=== PATIENT | male | born 1955 | race Hispanic/Latino ===

== ENCOUNTER 2017-09-24 09:10 | Inpatient (IN) | payer MEDICARE, OTHER ==
[~2017-09-24] VITALS: Ht 180.3 cm; Wt 114.8 kg
[2017-09-24] MEDS ORDERED: METFORMIN HCL850 MG PO (09:41)
[2017-09-24] MEDS ORDERED: PIOGLITAZONE HC45 MG PO (09:41)
[2017-09-24] MEDS ORDERED: LOSARTAN POTAS100 MG PO (09:41)
[2017-09-24] MEDS ORDERED: PRISTIQ ER50 MG PO ×2 (09:41→14:41)
[2017-09-24] MEDS ORDERED: JANUVIA100 MG PO (09:41)
[2017-09-24] MEDS ORDERED: ASPIRIN EC81 MG PO (09:41)
[2017-09-24] MEDS ORDERED: GABAPENTIN300 MG PO (09:41)
[2017-09-24] MEDS ORDERED: HYDROCHLOROTH12.5 MG PO (09:41)
--- NOTE | 2017-09-24 09:54 | Diagnostic Imaging Report ---
PROCEDURE: X-RAY CHEST, TWO VIEWS COMPARISON: None. INDICATIONS: SHORTNESS OF BREATH, BILATERAL LEG PAIN/BURNING FINDINGS: Lung volumes are low with vascular crowding in the bases and perihilar regions. No focal consolidation, pleural effusion, or pneumothorax. Cardiomediastinal contour and pulmonary vasculature are within normal limits when accounting for degree of inspiratory effort. Ventriculoperitoneal shunt catheter partially visualized. No acute osseous abnormality. CONCLUSION: Low lung volumes without acute cardiopulmonary abnormality. Dictated by: Flynn Alvarado M.D. on 09/24/2017 at 9:54 Electronically approved by: Flynn Alvarado M.D. on 09/24/2017 at 9:54
[2017-09-24 10:12] LABS: BASOPHILS # (AUTO) 0.1 (0.0-0.1); BASOPHILS % 0.9 % (0.0-1.0); EOSINOPHILS # (AUTO) 0.1 (0.0-0.4); EOSINOPHILS % 1.5 % (0.0-6.0); HEMATOCRIT 44.1 % (38.2-49.6); LYMPHOCYTES # (AUTO) 1.2 (1.0-3.2); LYMPHOCYTES % 22.4 % (18.0-39.1); MEAN CORPUSCULAR HEMOGLOBIN 30.5 pg (28-32); MEAN CORPUSCULAR VOLUME 89.6 fL (81-99); MONOCYTES # (AUTO) 0.3 (0.2-0.8); MONOCYTES % 5.9 % (4.4-11.3); NEUTROPHILS # (AUTO) 3.7 (2.1-6.9); NEUTROPHILS % 68.7 % (38.7-80.0); PLATELET COUNT 206 x10e3/uL (140-360); RED BLOOD COUNT 4.92 x10e6/uL (4.3-5.7); RED CELL DISTRIBUTION WIDTH 14.7 % (11.7-14.4)
[2017-09-24 10:33] LABS: ALANINE AMINOTRANSFERASE 24 IU/L (0-55); ALBUMIN 3.8 g/dL (3.5-5.0); ALKALINE PHOSPHATASE 82 IU/L (40-150); ANION GAP 14.8 mmol/L (8-16); BLOOD UREA NITROGEN 27 mg/dL (7-26); BUN/CREATININE RATIO 26 (6-25); CALCIUM 9.7 mg/dL (8.4-10.2); CARBON DIOXIDE 25 mmol/L (22-29); CHLORIDE 102 mmol/L (98-107); CREATININE, SERUM 1.05 mg/dL (0.72-1.25); EST GLOMERULAR FILTRATION RATE > 60 ML/MIN (60-); GLUCOSE 165 mg/dL (74-118); MAGNESIUM 1.3 MG/DL (1.3-2.1); PHOSPHORUS 2.8 MG/DL (2.3-4.7); POTASSIUM 3.8 mmol/L (3.5-5.1); SODIUM 138 mmol/L (136-145)
[2017-09-24 10:37] LABS: B-TYPE NATRIURETIC PEPTIDE2 30.9 pg/mL (0-100)
[2017-09-24] MEDS ORDERED: ASPIRIN 81 MG CHEW TAB PO ONE (12:00)
[2017-09-24] MEDS ORDERED: NITROGLYCERIN 0.4 MG SUBL SL PRN (12:00)
--- OUTSIDE RECORDS SUMMARY | 2017-09-24 12:03 | XMS REPORT ---
Author Author [facility] Address Unknown Phone Unavailable Care Team Providers Care Equestrian Trainer Name Role Phone YAO PLASCENCIA Unavailable Unavailable Problems This patient has no known problems. Allergies, Adverse Reactions, Alerts This patient has no known allergies or adverse reactions. Medications This patient has no known medications. Results Test Description Test Time Test Comments Text Results Atomic Results Result Comments CHEST 2 VIEWS [place] [address] Patient Name: ORLANDO MEDLEY MR #: [id number] : 1955 Age/Sex: 62/M Req #: [id number] Adm Physician: Ordered by: YAO PLASCENCIA MD Report #: [id number] Location: ER Room/Bed: Procedure: [id number] DX/CHEST 2 VIEWS Exam Date: 09/24/17 Exam Time: 925 REPORT STATUS: Signed PROCEDURE: X-RAY CHEST, TWO VIEWS COMPARISON: None. INDICATIONS: SHORTNESS OF BREATH, BILATERAL LEG PAIN/BURNING FINDINGS: Lung volumes are low with vascular crowding in the bases and perihilar regions. No focal consolidation, pleural effusion, or pneumothorax. Cardiomediastinal contour and pulmonary vasculature are within normal limits when accounting for degree of inspiratory effort. Ventriculoperitoneal shunt catheter partially visualized. No acute osseous abnormality. CONCLUSION: Low lung volumes without acute cardiopulmonary abnormality. Dictated by: Venessa Moreno M.D. on 09/24/2017 at 9:54 Electronically approved by: Venessa Moreno M.D. on 09/24/2017 at 9:54 Dictated By: VENESSA MORENO MD 3 Transcribed By: JORDYN on 09/24/17953 COPY TO: YAO PLASCENCIA MD
[2017-09-24] MEDS: FAMOTIDINE 20 MG TAB PO SCH (12:56)
[2017-09-24] MEDS ORDERED: GABAPENTIN 300 MG CAP PO SCH ×3 (13:00→21:00)
[2017-09-24 14:36] VITALS: BP 128/86
[2017-09-24 15:01] VITALS: BP 147/84
[2017-09-24] MEDS ORDERED: MAGNESIUM HYDROXIDE 30 ML UDC PO PRN (16:30)
[2017-09-24] MEDS ORDERED: MAGNESIUM/ALUMINUM/SIMETHICONE 30 ML UDC PO PRN (16:30)
--- NOTE | 2017-09-24 17:34 | History and Physical ---
HISTORY OF PRESENT ILLNESS: Mr. Anderson is a pleasant 62-year-old man, who presents to emergency room with a complaint of tingling of his feet and left shoulder. Patient reports that he has been taking gabapentin for tingling in the legs, but it seemed to be worse yesterday and became more worried when his symptoms spread to his left arm as well. PAST MEDICAL HISTORY: Significant for resection of intracranial aneurysm by Dr. Mason in 2005. He had a lower back surgery years ago. No other surgeries or hospitalizations. PERSONAL/SOCIAL HISTORY: Does not smoke. FAMILY HISTORY: Noncontributory. CURRENT MEDICATIONS AT HOME 1. Aspirin 81 mg daily. 2. Pristiq 50 mg daily. 3. Gabapentin 600 mg b.i.d. 4. Hydrochlorothiazide 12.5 mg daily. 5. Losartan 100 mg daily. 6. Metformin 850 mg daily. 7. Pioglitazone 30 mg daily. 8. Januvia 100 mg daily. HE DENIES ANY MEDICATION ALLERGIES. PHYSICAL EXAM GENERAL: At this time shows a pleasant, obese man, who is alert responsive. HEAD, EYES, EARS, NOSE, THROAT: The right-sided craniotomy defect. Pupils equal, round, reactive. NECK: No jugular venous distention, no bruits. THORAX: Heart sounds S1, S2 are equal. No murmurs. LUNGS: Clear. ABDOMEN: Markedly protuberant. Normal bowel sounds. Nontender. EXTREMITIES: Have some trophic changes in the lower limits and distal pulses seem somewhat reduced. EKG is unremarkable. INITIAL LABORATORY STUDIES: Relatively unrevealing with normal CBC and glucose 165 and 119. Troponin is normal. ASSESSMENT 1. Burning of the legs, likely her diabetic neuropathy. 2. Type-2 adult-onset diabetes, may not be well controlled. 3. Will rule out peripheral vascular disease with reduced pulses. 4. Consider coronary disease and angina. PLAN: Will ask for neurology evaluation. Will check arterial Doppler scan of legs and plan Lexiscan Myoview. Further management based on clinical course. Job#: [id number] CQ cc:RAJEEV VILLALPANDO MD
[2017-09-24 20:00] VITALS: BP 118/63
[2017-09-24 21:11] LABS: CREATINE KINASE MB 2.3 ng/mL (0-5.0)
[2017-09-24] MEDS: SIMVASTATIN 20 MG TAB PO SCH (21:22)
[2017-09-24] MEDS: ZOLPIDEM TARTRATE 5 MG TAB PO PRN (21:22)
[2017-09-24] MEDS: GABAPENTIN 400 MG CAP PO SCH (21:22)
[2017-09-24 21:25] VITALS: BP 147/84
--- NOTE | 2017-09-24 23:30 | Consultation ---
DATE OF CONSULTATION: September 24, 2017 NEUROLOGY CONSULT NOTE DATE OF : 1955 HISTORY OF PRESENT ILLNESS: Mr. Anderson is a 62-year-old, [id number]-xjwptpjq man with past medical history significant for hypertension, hyperlipidemia, and previously poorly controlled diabetes mellitus, who presented to [facility] on September 24, 2017 with severe burning pain. Mr. Anderson reports being diagnosed with diabetes mellitus in 2005. Beginning in 2006, he experienced burning pain in his feet. Over a period of several years, the burning pain has gradually worsened and has involved his left foreleg and left arm. At this time, the patient endorses burning pain, tingling, and numbness affecting both feet. He reports burning pain affecting his left arm and left foreleg. He does not report burning pain over the right foreleg or the right arm. The patient reports mild weakness affecting both legs. Otherwise, he endorses no other symptoms associated with the burning pain in his feet, left foreleg, and left arm. Specifically, he does not endorse a visual field cut or other disturbance, dysarthria, aphasia, impairment of balance or gait, dizziness or confusion. Several years ago, the patient was prescribed gabapentin 600 mg by mouth twice daily for treatment of neuropathic pain. Over the past several weeks, especially over the past few days, this medicine has done little to improve his neuropathic pain. Mr. Anderson was admitted to [facility] for further evaluation and treatment of his neuropathic pain as well as cardiac evaluation. REVIEW OF SYSTEMS: Chest discomfort, shortness of breath, joint pain, polyuria, memory impairment, weakness of the legs, numbness and tingling of the feet, burning pain of the feet, left foreleg, and left arm. Otherwise, 12-point review of systems is negative. PAST MEDICAL HISTORY: Hypertension, hyperlipidemia, diabetes mellitus type 2, anxiety disorder, cerebral artery aneurysm. PAST SURGICAL HISTORY: Repair of cerebral artery aneurysm, neck surgery. PAST HOSPITALIZATIONS: For surgeries and procedures as listed above, hospitalized 1 year ago for left leg infection. FAMILY HISTORY: The patient's paternal grandparents are . Their medical histories are unknown. The patient's maternal grandparents are . His maternal grandfather had diabetes mellitus. His maternal grandmother had coronary artery disease. The patient's father is alive. He had stomach cancer (in remission). The patient's mother is from coronary artery disease. Mr. Anderson has no siblings. He has 2 biological daughters, but is estranged from them. SOCIAL HISTORY: The patient is . He graduated high school. 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 The patient does endorse a prior history of tobacco use. He smoked 2 packs per day for approximately 35 years. He quit smoking in 2004. The patient endorses occasional alcohol use in the past. Currently, he does not drink alcohol. The patient does not report current or prior recreational drug use. HOME MEDICATIONS 1. Aspirin 81 mg by mouth daily. 2. Pristiq 50 mg by mouth daily. 3. Gabapentin 600 mg by mouth twice daily. 4. Hydrochlorothiazide 12.5 mg by mouth daily. 5. Losartan 100 mg by mouth daily. 6. Metformin 850 mg by mouth daily. 7. Pioglitazone 30 mg by mouth daily. 8. Januvia 100 mg by mouth daily. ALLERGIES: NO KNOWN DRUG ALLERGIES. NO KNOWN FOOD ALLERGIES. HOWEVER, THE PATIENT REPORTS WATERMELON, MANGOES, AND RAISINS WORSEN HIS NEUROPATHIC PAIN. NO KNOWN ALLERGY TO LATEX. NO KNOWN ALLERGY TO CONTRAST MATERIALS. PHYSICAL EXAMINATION VITAL SIGNS: Height 71 inches, weight 253 lbs, BMI 35.3. Blood pressure 147/84 mmHg, pulse 100 beats per minute, respiratory rate 18 breaths per minute, oxygen saturation 98% on room air. GENERAL: The patient is awake and alert. Does not appear distressed. Obese. HEENT: Normocephalic, atraumatic. Pupils are equal, round, and reactive to light. Moist mucous membranes. NECK: Supple. No appreciable thyromegaly. No appreciable carotid bruits. CARDIOVASCULAR: S1, S2. Regular rate and rhythm. No murmurs, rubs or gallops. RESPIRATORY: Clear to auscultation bilaterally. No wheezes, rhonchi or rales. EXTREMITIES: The skin is warm and dry. No clubbing, cyanosis or edema. The posterior tibial and dorsalis pedis pulses are 1+ and symmetric. SKIN: Venous stasis ulcerations. NEUROLOGIC: Memory/attention: The patient is awake and alert, oriented to person, place, time, and situation. CRANIAL NERVES: Cranial nerve I--not tested. Cranial nerves II, III, IV, --pupils are equal and round, react briskly to light (from 4 mm to 2 mm). Extraocular movements intact. No nystagmus. Cranial nerve V--sensation to light touch and pinprick is intact in the bilateral V1 through V3 distributions. Strength of the temporalis and masseter muscles is within normal limits. Cranial nerve VII--the face is symmetric, as are all facial movements. Strength is within normal limits. Cranial nerve VIII--hearing is intact to finger rub bilaterally. Cranial nerve IX and X--the soft palate elevates equally and symmetrically. Cranial nerve XI--normal strength of the bilateral sternocleidomastoid and trapezius muscles. Cranial nerve XII--the tongue protrudes midline and moves symmetrically from side to side. STRENGTH: Bulk is normal and strength is 5/5 in the bilateral deltoids, biceps, triceps, wrist flexors and extensors, finger flexors and extensors, intrinsic hand muscles, hip flexors, knee flexors, and extensors, ankle dorsiflexion and plantar flexion, and intrinsic foot muscles. Tone is normal. DTRs: Deep tendon reflexes are 1+ and symmetric at the triceps, biceps, brachioradialis, patellas. Deep tendon reflexes are trace and symmetric at the Achilles. Plantar responses are flexor bilaterally. Absent clonus. SENSATION: Sensation is intact to light touch and pinprick in both arms and both legs. Hyperpathia to light touch and pinprick over the left foreleg. CEREBELLAR: Cgrfjw-ycms-tizsdy and heel-morris maneuvers are intact without dysmetria or other impairment. Rapid alternating movements are intact. GAIT: Deferred. SPEECH: Spontaneous speech is normal without appreciable dysarthria or aphasia. Repetition is intact. INVOLUNTARY MOVEMENTS: None. PRONATOR DRIFT: None. LABORATORY DATA: Sodium 138, potassium 3.8, chloride 102, carbon dioxide 25, anion gap 14.8, BUN 27, creatinine 1.05, estimated GFR greater than 60, GPH-kt-jcevqzteyc ratio 26, glucose 165, calcium 9.7, phosphorus 2.8, magnesium 1.3, total bilirubin 0.4, AST 20, ALT 24, alkaline phosphatase 82, total protein 7.5, albumin 3.8, globulin 3.7, isipjhu-ll-qcgraazz ratio 1.0. CK 126, CK-MB 3.00, troponin-I 0.001, B-type natriuretic peptide 30.9. Hemoglobin A1c 6.7. The CBC with differential and platelets reveals a white blood cell count of 5.40 with a normal differential. The hemoglobin and hematocrit are 15.0 and 44.1 respectively. The platelet count is 206,000. ASSESSMENT AND PLAN: Mr. Anderson is a 61-year-old, fmmwy-eeaf-jqjcsdsq man with past medical history significant for hypertension, hyperlipidemia, and previously poorly controlled diabetes mellitus complicated by peripheral neuropathy. The patient was admitted to [facility] for further evaluation and treatment of worsening neuropathic pain as described in the history of present illness as well as cardiac evaluation. The patient's neurological examination is significant for diminished deep tendon reflexes and hyperpathia to light touch and pinprick over the left foreleg. His laboratory data has been reviewed and is documented above. The patient's presenting symptoms are compatible with a known diagnosis of diabetic peripheral neuropathy, although the asymmetric presentation is atypical. Currently, the patient's home medication of gabapentin 600 mg by mouth twice daily is insufficient to control his neuropathic pain. RECOMMENDATIONS 1. Increase gabapentin to 800 mg by mouth 3 times daily in an effort to better manage the patient's neuropathic pain. 2. The patient was strongly advised to continue to follow up with his primary care physician at regular intervals for assessment of his diabetes mellitus and adjustment of his medications as needed. 3. Defer treatment of other medical comorbidities to the primary and other services. Thank you for this consultation. Mr. Anderson was instructed to follow up with me as an outpatient for further titration of medications. TIME SPENT: 70 minutes. Job#: [id number] AVINASH LIVINGSTON
[2017-09-25] VITALS (8 sets, daily range): BP systolic 113–147; BP diastolic 57–79
[2017-09-25] MEDS: ACETAMINOPHEN 325 MG TAB PO PRN (02:05)
[2017-09-25] MEDS: FAMOTIDINE 20 MG TAB PO SCH ×2 (02:05→11:00)
[2017-09-25 07:27] LABS: CREATINE KINASE MB 2.2 ng/mL (0-5.0)
[2017-09-25 08:02] LABS: CHOL/HDL RATIO 3.9 (3.9-4.7)
[2017-09-25] MEDS ORDERED: NON-FORMULARY MEDICATION (Hydrochlorothiazide 12.5 MG) PO SCH (09:00)
[2017-09-25] MEDS ORDERED: PIOGLITAZONE HCL 45 MG TAB PO SCH (09:00)
[2017-09-25] MEDS ORDERED: DESVENLAFAXINE SUCCINATE 50 MG TAB.SR.24H PO SCH (09:00)
[2017-09-25] MEDS ORDERED: ASPIRIN 81 MG ENTERIC COATED PO SCH (09:00)
[2017-09-25] MEDS ORDERED: REGADENOSON 0.4 MG/5 ML SYR IV ONE (09:48)
[2017-09-25] MEDS: GABAPENTIN 400 MG CAP PO SCH ×3 (11:00→20:37)
[2017-09-25] MEDS: PIOGLITAZONE HCL 15 MG TAB PO SCH (11:00)
[2017-09-25] MEDS: HYDROCHLOROTHIAZIDE 25 MG TAB PO SCH (11:00)
[2017-09-25] MEDS: METFORMIN HCL 850 MG TAB PO SCH (11:00)
[2017-09-25] MEDS: SITAGLIPTIN 100 MG TAB PO SCH (11:00)
[2017-09-25] MEDS: ASPIRIN 81 MG ENTERIC COATED PO SCH (11:00)
[2017-09-25] MEDS: LOSARTAN POTASSIUM 100 MG TAB PO SCH (11:00)
[2017-09-25] MEDS: DESVENLAFAXINE SUCCINATE 50 MG TAB.SR.24H PO SCH (11:00)
[2017-09-25] MEDS: ZOLPIDEM TARTRATE 5 MG TAB PO PRN (20:37)
[2017-09-25] MEDS: SIMVASTATIN 20 MG TAB PO SCH (20:37)
[2017-09-26] VITALS (7 sets, daily range): BP systolic 98–141; BP diastolic 51–74
[2017-09-26] MEDS: FAMOTIDINE 20 MG TAB PO SCH ×3 (00:12→14:08)
[2017-09-26] MEDS: ACETAMINOPHEN 325 MG TAB PO PRN (03:29)
[2017-09-26] MEDS: LOSARTAN POTASSIUM 100 MG TAB PO SCH (09:00)
[2017-09-26] MEDS: ASPIRIN 81 MG ENTERIC COATED PO SCH (09:30)
[2017-09-26] MEDS: PIOGLITAZONE HCL 15 MG TAB PO SCH (09:30)
[2017-09-26] MEDS: SITAGLIPTIN 100 MG TAB PO SCH (11:34)
[2017-09-26] MEDS: GABAPENTIN 400 MG CAP PO SCH ×3 (11:34→20:15)
[2017-09-26] MEDS: HYDROCHLOROTHIAZIDE 25 MG TAB PO SCH (11:34)
[2017-09-26] MEDS: METFORMIN HCL 850 MG TAB PO SCH (11:35)
[2017-09-26] MEDS: DESVENLAFAXINE SUCCINATE 50 MG TAB.SR.24H PO SCH (11:35)
[2017-09-26] MEDS ORDERED: DIPHENHYDRAMINE HCL 25 MG CAP PO PRN (12:45)
[2017-09-26] MEDS ORDERED: SODIUM CHLORIDE FLUSH 10 ML SYR INJ PRN (12:45)
[2017-09-26] MEDS: SIMVASTATIN 20 MG TAB PO SCH (20:15)
[2017-09-27] VITALS (8 sets, daily range): BP systolic 125–146; BP diastolic 61–74
[2017-09-27 07:11] LABS: BASOPHILS # (AUTO) 0.1 (0.0-0.1); BASOPHILS % 0.9 % (0.0-1.0); EOSINOPHILS # (AUTO) 0.2 (0.0-0.4); EOSINOPHILS % 2.7 % (0.0-6.0); HEMATOCRIT 42.1 % (38.2-49.6); HEMOGLOBIN 14.2 g/dL (14.0-18.0); LYMPHOCYTES % 36.5 % (18.0-39.1); MEAN CORPUSCULAR HEMOGLOBIN 30.8 pg (28-32); MEAN CORPUSCULAR HGB CONC 33.7 g/dL (31-35); MEAN CORPUSCULAR VOLUME 91.3 fL (81-99); MONOCYTES # (AUTO) 0.5 (0.2-0.8); MONOCYTES % 8.3 % (4.4-11.3); NEUTROPHILS # (AUTO) 2.8 (2.1-6.9); NEUTROPHILS % 51.1 % (38.7-80.0); PLATELET COUNT 197 x10e3/uL (140-360); RED BLOOD COUNT 4.61 x10e6/uL (4.3-5.7); RED CELL DISTRIBUTION WIDTH 14.7 % (11.7-14.4)
[2017-09-27 07:28] LABS: INR 1.09; PARTIAL THROMBOPLASTIN TIME 27.8 seconds (23.8-35.5); PROTHROMBIN TIME 13.3 seconds (11.9-14.5)
[2017-09-27 07:40] LABS: BLOOD UREA NITROGEN 23 mg/dL (7-26); BUN/CREATININE RATIO 23 (6-25); CALCIUM 9.6 mg/dL (8.4-10.2); CARBON DIOXIDE 30 mmol/L (22-29); CHLORIDE 103 mmol/L (98-107); CHOL/HDL RATIO 3.3 (3.9-4.7); CHOLESTEROL 196 MD/DL (0-199); EST GLOMERULAR FILTRATION RATE > 60 ML/MIN (60-); GLUCOSE 146 mg/dL (74-118); HDL CHOLESTEROL 59 MG/DL (40-60); LDL CHOLESTEROL 114 MG/DL (60-130); SODIUM 141 mmol/L (136-145); TRIGLYCERIDES 117 MG/DL (0-149)
[2017-09-27] MEDS: SODIUM CHLORIDE 0.9% 1000ML 1,000 ML IV SCH ×2 (07:54→14:58)
[2017-09-27 08:05] LABS: THYROID STIMULATING HORMONE 1.209 uIU/mL (0.350-4.940)
[2017-09-27] MEDS ORDERED: HEPARIN SOD (PORCINE) 1000 UNIT/ML 30ML ONE (08:14)
[2017-09-27] MEDS ORDERED: IOPAMIDOL 370 MG/ML 200 ML INFUS..BTL INJ ONE (08:14)
[2017-09-27] MEDS ORDERED: LIDOCAINE HCL 2% LOCAL 20 ML VIAL ONE (08:14)
[2017-09-27] MEDS ORDERED: NITROGLYCERIN/D5W 200 MCG/ML 0 ML ONE (08:15)
[2017-09-27] MEDS ORDERED: ATROPINE SULFATE 0.1 MG/ML 10ML SYR ONE (08:16)
[2017-09-27] MEDS ORDERED: BIVALIRUDIN 250 MG/VIAL IV ONE (08:16)
[2017-09-27] MEDS ORDERED: HEPARIN SOD/SOD CHLORIDE 2,000 ML ONE (08:16)
[2017-09-27] MEDS ORDERED: SODIUM CHLORIDE 0.9% 100 ML 0 ML ONE (08:16)
[2017-09-27] MEDS ORDERED: IOPAMIDOL 300MG/ML 100 ML INFUS..BTL IV ONE ×2 (08:19→11:20)
[2017-09-27] MEDS: GABAPENTIN 400 MG CAP PO SCH ×3 (09:00→21:00)
[2017-09-27] MEDS ORDERED: MIDAZOLAM HCL 2 MG/2 ML VIAL ONE ×2 (09:53→11:04)
[2017-09-27] MEDS ORDERED: FENTANYL CITRATE/PF 100MCG/2 ML INJ ONE (09:54)
[2017-09-27] MEDS ORDERED: LABETALOL HCL 20 ML ONE (11:12)
[2017-09-27] MEDS ORDERED: ASPIRIN 325 MG TAB ONE (11:58)
[2017-09-27] MEDS ORDERED: CLOPIDOGREL BISULFATE 75 MG TAB ONE (11:59)
[2017-09-27] MEDS ORDERED: ACETAMINOPHEN 325 MG TAB PO PRN (12:15)
[2017-09-27] MEDS: FAMOTIDINE 20 MG TAB PO SCH ×3 (13:24→23:59)
[2017-09-27] MEDS: SITAGLIPTIN 100 MG TAB PO SCH (17:36)
[2017-09-27] MEDS: PIOGLITAZONE HCL 15 MG TAB PO SCH (17:36)
[2017-09-27] MEDS: DESVENLAFAXINE SUCCINATE 50 MG TAB.SR.24H PO SCH (17:36)
[2017-09-27] MEDS: HYDROCHLOROTHIAZIDE 25 MG TAB PO SCH (17:36)
[2017-09-27] MEDS: LOSARTAN POTASSIUM 100 MG TAB PO SCH (17:36)
[2017-09-27] MEDS: METFORMIN HCL 850 MG TAB PO SCH (17:36)
[2017-09-27] MEDS ORDERED: ATORVASTATIN 20 MG TAB PO SCH (21:00)
[2017-09-27] MEDS: SIMVASTATIN 20 MG TAB PO SCH (21:00)
[2017-09-27] MEDS: ZOLPIDEM TARTRATE 5 MG TAB PO PRN (22:21)
[2017-09-28] VITALS: BP 127/60
[2017-09-28 04:00] VITALS: BP 122/64
[2017-09-28 08:00] VITALS: BP 127/76
[2017-09-28 08:35] VITALS: BP 127/76
[2017-09-28] MEDS: DESVENLAFAXINE SUCCINATE 50 MG TAB.SR.24H PO SCH (08:35)
[2017-09-28] MEDS: SITAGLIPTIN 100 MG TAB PO SCH (08:35)
[2017-09-28] MEDS: GABAPENTIN 400 MG CAP PO SCH (08:35)
[2017-09-28] MEDS: LOSARTAN POTASSIUM 100 MG TAB PO SCH (08:35)
[2017-09-28] MEDS: METFORMIN HCL 850 MG TAB PO SCH (08:35)
[2017-09-28] MEDS: PIOGLITAZONE HCL 15 MG TAB PO SCH (08:35)
[2017-09-28] MEDS: HYDROCHLOROTHIAZIDE 25 MG TAB PO SCH (08:35)
[2017-09-28] MEDS ORDERED: ASPIRIN 325 MG TAB PO SCH (09:00)
[2017-09-28] MEDS ORDERED: CLOPIDOGREL BISULFATE 75 MG TAB PO SCH (09:00)
[2017-09-28 12:06] VITALS: BP 130/58
--- NOTE | 2017-09-28 13:54 | Operative Report ---
DATE OF PROCEDURE: September 27, 2017 CARDIAC CATH, ANGIOGRAM AND INTERVENTION TITLE OF PROCEDURE 1. Left heart cath. 2. Abdominal aortogram. 3. Runoff study. 4. Balloon angioplasty of the left superficial femoral artery. DESCRIPTION OF PROCEDURE: The patient was brought to the labor contractor in a fasting and partially sedated state. Right groin prepped with 2% Xylocaine, and using a 4-[place] sheath, left heart catheterization performed with 4-[place] right and left Miguel catheters. Inspection of films shows the right coronary artery to have no significant atherosclerotic plaquing. The left main, circumflex and OMs are also without significant plaquing. The proximal LAD has minor 15% stenoses, and the more distal LAD and diagonals are unremarkable. Left ventriculogram was not performed. Then using a pigtail, an abdominal aortogram was performed and runoff angiograms were performed with cinefluoroscopy. Inspection of these films demonstrates minor plaquing in the infrarenal abdominal aorta. There is an IVC filter in place already. The iliacs and common femorals are relatively unremarkable. The right superficial femoral artery has some diffuse calcification, and there is approximately 50% stenosis in the proximal portion. The popliteals and more distal trifurcation vessels are unremarkable in the right leg but not perfectly well images. The left leg shows the common femoral and profunda femoral arteries to be unremarkable. The left superficial femoral artery, however, also has calcifications and focal stenoses that range from 90% to 99% stenosis. The left popliteal and post-trifurcation vessels are all unremarkable as visualized. Then the 4-[place] sheath was exchanged for a 6-[place] "up-and-over" sheath, and selective angiograms were performed with the CAITLIN 4-[place] catheter in the left superficial femoral artery, confirming the previous findings. Then using a 150 mm x 5 mm Lutonix drug-eluting balloon, the calcified area was dilated to 8 atmospheres for 2-1/2 minutes with excellent results. Post-procedure angiogram shows no more than 15% stenosis, and flow is excellent. ACT was checked and was less than 180 seconds, and the sheath was pulled, pressure was held, and patient returned to his room in stable condition. FINAL IMPRESSION 1. Insignificant coronary artery disease as above. 2. Mild plaquing in the abdominal aorta. 3. Bilateral calcified superficial femoral artery disease with approximately 50% stenosis in the right leg. 4. Stenoses of 90% to 99% in the left superficial femoral artery. 5. Successful drug-eluting balloon angioplasty in the left superficial femoral artery with excellent results. No significant blood loss, no complication. Patient returned to his room in stable condition after being given aspirin 325 mg and Plavix 600 mg. Job#: [id number] EV
--- NOTE | 2017-09-28 14:12 | Consultation ---
DATE OF CONSULTATION: September 28, 2017 ENDOCRINE CONSULTATION This is a patient of Dr. Mock. Thank you very much for referring this patient. This is a 62-year-old gentleman who is referred to me for evaluation of uncontrolled diabetes mellitus. Patient reported to the emergency room with complaining of tingling of his feet. Patient has history of intracranial aneurysm in the past which was removed, and at that time the patient was found to be diabetic. He is a diabetic for almost 10-plus years now. Patient takes a combination of oral hypoglycemics at home including the metformin, pioglitazone and the Januvia. His other medical problems include history of severe diabetic sensory neuropathy for which he is on gabapentin. Patient also has history of depression for which he is on Pristiq. His blood sugars have been fluctuating. He is a nonsmoker. PHYSICAL EXAMINATION: GENERAL: Today the patient is alert, awake, a little bit apprehensive. He is moderately overweight. VITALS: His heart rate is 78. Blood pressure 130/80 mmHg. HEENT: Examination essentially unremarkable. Thyroid is palpable. Clinically he is near euthyroid. CHEST: Bilateral vesicular breathing. He has mild bronchospasm. CARDIAC: Both 1st and 2nd heart sounds. There is no 3rd or 4th heart sound. Ejection sound grade 2/6. EXTREMITIES: Patient has evidence of diabetic sensory neuropathy in both lower extremities and decreased peripheral pulses. CLINICAL IMPRESSION: 1. Diabetes mellitus type 2, uncontrolled, with complications. 2. Peripheral vascular disease. 3. Hypertension. 4. Status post intracranial aneurysm. 5. Hyperlipidemia. The plan at this time is to monitor his blood sugars closely, give him insulin as needed. After this procedure is done, we may consider giving him SGLT2 inhibitors like Invokana. Thanks again for referring this patient. I will be following this patient with you. Job#: [id number] EV YARA
[2017-09-28] MEDS ORDERED: ATORVASTATIN CA20 MG PO (14:45)
[2017-09-28] MEDS ORDERED: ECOTRIN325 MG PO (14:46)
[2017-09-28] MEDS ORDERED: CLOPIDOGREL75 MG PO (14:46)
[2017-09-28] MEDS ORDERED: GABAPENTIN800 MG PO (15:25)
--- NOTE | 2017-10-02 11:29 | Discharge Summary ---
HISTORY OF PRESENT ILLNESS: Mr. Anderson is a complex, 62-year-old diabetic who presented to the emergency room with complaint of legs tingling and numbness and left arm discomfort. HOSPITAL COURSE: Initial evaluation was relatively unremarkable. It was felt that he likely had diabetic neuropathy and may have peripheral vascular disease. In view of his left shoulder and left arm discomfort, he had a Lexiscan Myoview requested. He was seen in consultation by Dr. Macy Hines, who felt that he may have diabetic neuropathy and adjusted his gabapentin dose. His diabetes appears to be poorly controlled, and he was seen in consultation by Dr. Knapp, who adjusted his diabetic treatment regimen. Arterial Dopscan of the legs suggested severe vascular disease. On the morning of the 28 of September, he was taken to the labor expediter where a left heart catheterization showed insignificant coronary disease and angiogram showed 50% stenosis of the right superficial femoral artery and 90% to 99% stenoses of the left superficial femoral artery. A drug-coated balloon angioplasty was performed of the left superficial femoral artery with good results. Patient was monitored on the floor overnight. On the morning of the , he was ambulating without difficulty and said his legs felt better. He was discharged to home. Dr. Knapp did not change his diabetic treatment regimen on discharge as the patient was leaving the country. He will follow up with Dr. Saul Beaulieu on a regular basis. He was given aspirin and Plavix every day for the next year and will resume his other home medications. He had atorvastatin 10 mg daily added to his regimen. DISCHARGE DIAGNOSES 1. Diabetic neuropathy. 2. Peripheral vascular disease. 3. Type-2 adult-onset diabetes. 4. Insignificant coronary disease. 5. Hyperlipidemia. SUSIE DUARTE MD Job#: [id number] cc:MD MACY MISTRY MD KULDIP KAUL, MD
== END 2017-09-28 15:28 | disposition home or self-care (01) | DRG 253 ==
LOC: ER 09:10 → ERHOLD 12:00 → IMCU 13:45 → OBSVTOIN 09-27 10:03 → MED/SURG 09-27 12:30
PROVIDERS: ADMIT Internal Medicine Cardiovascular Disease; ATTEND Internal Medicine Cardiovascular Disease
PROC: B2111ZZ Fluoroscopy of Multiple Coronary Arteries using Low Osmolar Contrast (ICD-10-PCS; principal; 2017-09-27)
PROC: 4A023N7 Measurement of Cardiac Sampling and Pressure, Left Heart, Percutaneous Approach (ICD-10-PCS; principal; 2017-09-27)
PROC: 047L3Z1 Dilation of Left Femoral Artery using Drug-Coated Balloon, Percutaneous Approach (ICD-10-PCS; principal; 2017-09-27)
PROC: B41D1ZZ Fluoroscopy of Aorta and Bilateral Lower Extremity Arteries using Low Osmolar Contrast (ICD-10-PCS; principal; 2017-09-27)
DX: I70.202 Unspecified atherosclerosis of native arteries of extremities, left leg (principal); I70.92 Chronic total occlusion of artery of the extremities; E11.40 Type 2 diabetes mellitus with diabetic neuropathy, unspecified; I25.10 Atherosclerotic heart disease of native coronary artery without angina pectoris; E11.65 Type 2 diabetes mellitus with hyperglycemia; I10 Essential (primary) hypertension; E66.9 Obesity, unspecified; Z68.35 Body mass index [BMI] 35.0-35.9, adult; Z87.891 Personal history of nicotine dependence; F32.9 Major depressive disorder, single episode, unspecified; F41.9 Anxiety disorder, unspecified; Z28.82 Immunization not carried out because of caregiver refusal; Z79.82 Long term (current) use of aspirin; Z79.02 Long term (current) use of antithrombotics/antiplatelets
CPT/HCPCS: 36140; 36415; 71046; 75716; 77002; 78452; 80048; 80053; 80061; 82550; 82553; 82948; 83036; 83735; 83880; 84100; 84443; 84484; 85025; 85610; 85730; 92920; 93005; 93017; 93306; 93458; 93925; 99284; A9502; C1766; C2623; G0378; J0583; J1644; J2001; J2250; Q9967

== ENCOUNTER 2020-11-01 12:52 | Inpatient (IN) | payer MEDICARE, OTHER ==
[~2020-11-01] VITALS: Ht 180.3 cm; Wt 114.8 kg
[~2020-11-01 12:52] MED LIST: ASPIRIN EC81 MG PO; ATORVASTATIN CA20 MG PO; CLOPIDOGREL75 MG PO; ECOTRIN325 MG PO; GABAPENTIN300 MG PO; GABAPENTIN800 MG PO; HYDROCHLOROTH12.5 MG PO; JANUVIA100 MG PO; LOSARTAN POTAS100 MG PO; METFORMIN HCL850 MG PO; PIOGLITAZONE HC45 MG PO; PRISTIQ ER50 MG PO
[2020-11-01] MEDS ORDERED: VANCOMYCIN 750MG/NS 150ML IVPB 150 ML IV SCH (14:00)
[2020-11-01] MEDS ORDERED: CEFEPIME HCL 1GM 1 GM in SODIUM CHLORIDE 0.9% 50ML 50 ML IV STA (14:01)
[2020-11-01 14:30] LABS: BASOPHILS # (AUTO) 0.1 (0.0-0.1); BASOPHILS % 0.9 % (0.0-1.0); EOSINOPHILS # (AUTO) 0.2 (0.0-0.4); EOSINOPHILS % 2.7 % (0.0-6.0); HEMATOCRIT 40.7 % (38.2-49.6); LYMPHOCYTES # (AUTO) 1.5 (1.0-3.2); LYMPHOCYTES % 27.8 % (18.0-39.1); MEAN CORPUSCULAR HEMOGLOBIN 28.6 pg (28-32); MEAN CORPUSCULAR HGB CONC 31.9 g/dL (31-35); MEAN CORPUSCULAR VOLUME 89.6 fL (81-99); MONOCYTES # (AUTO) 0.5 (0.2-0.8); MONOCYTES % 8.4 % (4.4-11.3); NEUTROPHILS # (AUTO) 3.3 (2.1-6.9); NEUTROPHILS % 59.8 % (38.7-80.0); PLATELET COUNT 207 x10e3/uL (140-360); RED BLOOD COUNT 4.54 x10e6/uL (4.3-5.7); RED CELL DISTRIBUTION WIDTH 14.7 % (11.7-14.4)
[2020-11-01] MEDS ORDERED: GLIPIZIDE5 MG PO (14:46)
[2020-11-01] MEDS ORDERED: ATORVASTATIN CA40 MG PO (14:47)
[2020-11-01 14:54] LABS: ALANINE AMINOTRANSFERASE 35 IU/L (0-55); ALBUMIN 3.8 g/dL (3.5-5.0); ALKALINE PHOSPHATASE 154 IU/L (40-150); ANION GAP 14.3 mmol/L (8-16); BLOOD UREA NITROGEN 17 mg/dL (7-26); BUN/CREATININE RATIO 19 (6-25); CALCIUM 9.1 mg/dL (8.4-10.2); CARBON DIOXIDE 22 mmol/L (22-29); CHLORIDE 106 mmol/L (98-107); CREATININE, SERUM 0.91 mg/dL (0.72-1.25); EST GLOMERULAR FILTRATION RATE > 60 ML/MIN (60-); GLUCOSE 199 mg/dL (74-118); POTASSIUM 4.3 mmol/L (3.5-5.1); SODIUM 138 mmol/L (136-145)
[2020-11-01] MEDS ORDERED: ONDANSETRON HCL INJ 2MG/ML 2ML 2 MG/ML VIAL IV STA (16:36)
[2020-11-01] MEDS ORDERED: MORPHINE SULFATE INJ 2 MG/ML SYR IV STA (16:36)
[2020-11-01] MEDS ORDERED: ONDANSETRON HCL INJ 2MG/ML 2ML 2 MG/ML VIAL IV PRN (16:45)
[2020-11-01 18:21] VITALS: BP 161/76
[2020-11-01 20:00] VITALS: BP 161/76
[2020-11-01 20:27] VITALS: BP 157/74
[2020-11-01] MEDS: MORPHINE SULFATE INJ 2 MG/ML SYR IV PRN (21:15)
[2020-11-01] MEDS ORDERED: VANCOMYCIN 1GM/NS 250 ML 250 ML ONE (22:11)
[2020-11-01] MEDS: MELATONIN 5 MG TABLET PO SCH (22:15)
[2020-11-01] MEDS: VANCOMYCIN 750MG/NS 150ML IVPB 150 ML IV SCH (22:17)
[2020-11-01] MEDS ORDERED: MELATONIN3 MG PO (22:20)
[2020-11-02] VITALS (7 sets, daily range): BP systolic 129–190; BP diastolic 68–84
[2020-11-02] MEDS ORDERED: POTASSIUM CHLORIDE 20 MEQ TAB CR PO PRN (01:00)
[2020-11-02] MEDS ORDERED: BENZONATATE 100 MG CAP PO PRN (01:00)
[2020-11-02] MEDS ORDERED: DEXTROSE 50% SYRINGE 50 ML IV PRN ×3 (01:00→11:45)
[2020-11-02] MEDS ORDERED: DOCUSATE SODIUM 100 MG CAP PO PRN (01:00)
[2020-11-02] MEDS ORDERED: SIMETHICONE 80 MG CHEW PO PRN (01:00)
[2020-11-02] MEDS ORDERED: LIDOCAINE 4% PATCH TP PRN (01:00)
[2020-11-02] MEDS ORDERED: HYDRALAZINE HCL 20 MG/ML VIAL IV PRN (01:00)
[2020-11-02] MEDS ORDERED: DIPHENHYDRAMINE HCL 25 MG CAP PO PRN (01:00)
[2020-11-02] MEDS ORDERED: ACETAMINOPHEN 325 MG TAB PO PRN (01:00)
[2020-11-02] MEDS: MORPHINE SULFATE INJ 2 MG/ML SYR IV PRN ×3 (04:47→21:41)
[2020-11-02 06:06] LABS: BASOPHILS # (AUTO) 0.1 (0.0-0.1); BASOPHILS % 1.1 % (0.0-1.0); EOSINOPHILS # (AUTO) 0.3 (0.0-0.4); EOSINOPHILS % 5.3 % (0.0-6.0); HEMATOCRIT 38.3 % (38.2-49.6); HEMOGLOBIN 12.3 g/dL (14.0-18.0); LYMPHOCYTES # (AUTO) 1.7 (1.0-3.2); LYMPHOCYTES % 35.9 % (18.0-39.1); MEAN CORPUSCULAR HGB CONC 32.1 g/dL (31-35); MEAN CORPUSCULAR VOLUME 90.3 fL (81-99); MONOCYTES # (AUTO) 0.4 (0.2-0.8); MONOCYTES % 9.2 % (4.4-11.3); NEUTROPHILS # (AUTO) 2.3 (2.1-6.9); NEUTROPHILS % 48.3 % (38.7-80.0); PLATELET COUNT 203 x10e3/uL (140-360); RED BLOOD COUNT 4.24 x10e6/uL (4.3-5.7); RED CELL DISTRIBUTION WIDTH 14.8 % (11.7-14.4)
[2020-11-02 06:29] LABS: ALANINE AMINOTRANSFERASE 31 IU/L (0-55); ALBUMIN 3.5 g/dL (3.5-5.0); ALBUMIN/GLOBULIN RATIO 1.1 (0.8-2.0); ALKALINE PHOSPHATASE 115 IU/L (40-150); ANION GAP 14.9 mmol/L (8-16); BLOOD UREA NITROGEN 17 mg/dL (7-26); BUN/CREATININE RATIO 18 (6-25); CALCIUM 8.7 mg/dL (8.4-10.2); CARBON DIOXIDE 25 mmol/L (22-29); CHLORIDE 103 mmol/L (98-107); CREATININE, SERUM 0.92 mg/dL (0.72-1.25); EST GLOMERULAR FILTRATION RATE > 60 ML/MIN (60-); GLUCOSE 155 mg/dL (74-118); POTASSIUM 3.9 mmol/L (3.5-5.1); SODIUM 139 mmol/L (136-145)
[2020-11-02] MEDS: CLOPIDOGREL BISULFATE 75 MG TAB PO SCH (09:21)
[2020-11-02] MEDS: ASPIRIN 325 MG TAB PO SCH (09:21)
[2020-11-02] MEDS: SITAGLIPTIN 100 MG TAB PO SCH (09:21)
[2020-11-02] MEDS: DESVENLAFAXINE SUCCINATE 50 MG TAB.SR.24H PO SCH (09:21)
[2020-11-02] MEDS: LOSARTAN POTASSIUM 100 MG TAB PO SCH (09:21)
[2020-11-02] MEDS: PANTOPRAZOLE SOD 40 MG TABEC PO SCH (09:22)
[2020-11-02] MEDS: VANCOMYCIN 750MG/NS 150ML IVPB 150 ML IV SCH ×2 (09:22→21:45)
[2020-11-02] MEDS ORDERED: NON-FORMULARY MEDICATION (Gabapentin 300 MG) PO SCH (15:00)
[2020-11-02] MEDS: GABAPENTIN 300 MG CAP PO SCH ×2 (15:43→21:47)
[2020-11-02] MEDS: POLYETHYLENE GLYCOL 3350 17 GM PACK PO PRN ×2 (15:53→22:51)
[2020-11-02] MEDS: ENOXAPARIN SOD INJ 40 MG/0.4 ML SYR SC SCH (15:57)
[2020-11-02] MEDS: SILVER SULFADIAZINE 50GM CREAM TOP SCH (17:00)
[2020-11-02] MEDS ORDERED: ENOXAPARIN SOD INJ 40 MG/0.4 ML SYR SC SCH (17:00)
[2020-11-02] MEDS ORDERED: GADOBENATE DIMEGLUMINE 1 ML IV ONE (18:13)
[2020-11-02] MEDS: HYDROCODONE/APAP 5MG-325MG TAB PO PRN (18:51)
[2020-11-02] MEDS ORDERED: SODIUM CHLORIDE 0.9% 50ML 50 ML ONE (21:46)
[2020-11-02] MEDS: ATORVASTATIN 20 MG TAB PO SCH (21:47)
[2020-11-02] MEDS: MELATONIN 5 MG TABLET PO SCH (22:51)
[2020-11-03] VITALS (9 sets, daily range): BP systolic 129–190; BP diastolic 55–84
[2020-11-03 05:25] LABS: BASOPHILS # (AUTO) 0.1 (0.0-0.1); EOSINOPHILS # (AUTO) 0.2 (0.0-0.4); EOSINOPHILS % 4.4 % (0.0-6.0); HEMATOCRIT 40.5 % (38.2-49.6); HEMOGLOBIN 13.3 g/dL (14.0-18.0); LYMPHOCYTES # (AUTO) 1.4 (1.0-3.2); LYMPHOCYTES % 27.3 % (18.0-39.1); MEAN CORPUSCULAR HEMOGLOBIN 29.2 pg (28-32); MEAN CORPUSCULAR HGB CONC 32.8 g/dL (31-35); MONOCYTES # (AUTO) 0.5 (0.2-0.8); MONOCYTES % 10.3 % (4.4-11.3); NEUTROPHILS # (AUTO) 2.8 (2.1-6.9); NEUTROPHILS % 56.6 % (38.7-80.0); PLATELET COUNT 206 x10e3/uL (140-360); RED BLOOD COUNT 4.55 x10e6/uL (4.3-5.7); RED CELL DISTRIBUTION WIDTH 14.6 % (11.7-14.4)
[2020-11-03 06:02] LABS: ANION GAP 15.3 mmol/L (8-16); BLOOD UREA NITROGEN 13 mg/dL (7-26); BUN/CREATININE RATIO 16 (6-25); CALCIUM 9.2 mg/dL (8.4-10.2); CARBON DIOXIDE 26 mmol/L (22-29); CHLORIDE 104 mmol/L (98-107); CREATININE, SERUM 0.83 mg/dL (0.72-1.25); EST GLOMERULAR FILTRATION RATE > 60 ML/MIN (60-); GLUCOSE 152 mg/dL (74-118); POTASSIUM 4.3 mmol/L (3.5-5.1); SODIUM 141 mmol/L (136-145)
[2020-11-03 06:17] LABS: CHOL/HDL RATIO 2.5 (3.9-4.7); MAGNESIUM 1.9 MG/DL (1.3-2.1); PHOSPHORUS 3.6 MG/DL (2.3-4.7)
[2020-11-03 06:37] LABS: THYROID STIMULATING HORMONE 0.883 uIU/mL (0.350-4.940)
[2020-11-03] MEDS: VANCOMYCIN 750MG/NS 150ML IVPB 150 ML IV SCH ×2 (09:29→21:09)
[2020-11-03] MEDS: PANTOPRAZOLE SOD 40 MG TABEC PO SCH (09:29)
[2020-11-03] MEDS: SITAGLIPTIN 100 MG TAB PO SCH (09:30)
[2020-11-03] MEDS: LOSARTAN POTASSIUM 100 MG TAB PO SCH (09:30)
[2020-11-03] MEDS: ASPIRIN 325 MG TAB PO SCH (09:30)
[2020-11-03] MEDS: GABAPENTIN 300 MG CAP PO SCH ×3 (09:31→21:09)
[2020-11-03] MEDS: DESVENLAFAXINE SUCCINATE 50 MG TAB.SR.24H PO SCH (09:31)
[2020-11-03] MEDS: CLOPIDOGREL BISULFATE 75 MG TAB PO SCH (09:31)
[2020-11-03] MEDS: HYDROCODONE/APAP 5MG-325MG TAB PO PRN (11:34)
[2020-11-03] MEDS: COLLAGENASE 5 GM TUBE TOP SCH (11:35)
[2020-11-03] MEDS: SILVER SULFADIAZINE 50GM CREAM TOP SCH ×2 (11:35→17:06)
[2020-11-03] MEDS: BALSAM PERU/CASTOR OIL 60 GM OINT...G. TP SCH (11:35)
[2020-11-03] MEDS ORDERED: MIDAZOLAM HCL 2 MG/2 ML VIAL ONE ×2 (12:44→14:46)
[2020-11-03] MEDS ORDERED: HEPARIN SOD (PORCINE) 1000 UNIT/ML 30ML ONE (12:44)
[2020-11-03] MEDS ORDERED: SODIUM CHLORIDE 0.9% 1000ML 1,000 ML ONE ×2 (12:45→14:09)
[2020-11-03] MEDS ORDERED: IOPAMIDOL 300MG/ML 100 ML INFUS..BTL IV ONE (12:45)
[2020-11-03] MEDS ORDERED: LIDOCAINE HCL 2% LOCAL 20 ML VIAL ONE (12:45)
[2020-11-03] MEDS ORDERED: HEPARIN SOD/SOD CHLORIDE 2,000 ML ONE (12:45)
[2020-11-03] MEDS ORDERED: FENTANYL CITRATE/PF 100MCG/2 ML INJ ONE (12:45)
[2020-11-03] MEDS ORDERED: NITROGLYCERIN/D5W 200 MCG/ML 250 ML ONE (12:46)
[2020-11-03] MEDS ORDERED: VERAPAMIL HCL 2.5 MG/ML 2 ML VIAL ONE (14:09)
[2020-11-03] MEDS: ENOXAPARIN SOD INJ 40 MG/0.4 ML SYR SC SCH (17:23)
[2020-11-03] MEDS ORDERED: LIDOCAINE HCL 2% LOCAL 20 ML VIAL INJ SCH (18:55)
[2020-11-03] MEDS: MELATONIN 5 MG TABLET PO SCH (21:09)
[2020-11-03] MEDS: ATORVASTATIN 20 MG TAB PO SCH (21:09)
[2020-11-04] VITALS (8 sets, daily range): BP systolic 118–155; BP diastolic 60–73
[2020-11-04] MEDS: MORPHINE SULFATE INJ 2 MG/ML SYR IV PRN (06:00)
[2020-11-04] MEDS: HYDROCODONE/APAP 5MG-325MG TAB PO PRN ×2 (08:49→22:13)
[2020-11-04] MEDS: SITAGLIPTIN 100 MG TAB PO SCH (08:52)
[2020-11-04] MEDS: LOSARTAN POTASSIUM 100 MG TAB PO SCH (08:52)
[2020-11-04] MEDS: GABAPENTIN 300 MG CAP PO SCH ×3 (08:52→22:11)
[2020-11-04] MEDS: PANTOPRAZOLE SOD 40 MG TABEC PO SCH (08:52)
[2020-11-04] MEDS: DESVENLAFAXINE SUCCINATE 50 MG TAB.SR.24H PO SCH (08:52)
[2020-11-04] MEDS: SILVER SULFADIAZINE 50GM CREAM TOP SCH ×2 (09:00→18:37)
[2020-11-04] MEDS: VANCOMYCIN 750MG/NS 150ML IVPB 150 ML IV SCH ×2 (09:06→22:11)
[2020-11-04] MEDS ORDERED: LIDOCAINE HCL 2% LOCAL 20 ML VIAL INJ SCH (12:00)
[2020-11-04] MEDS: ASPIRIN 325 MG TAB PO SCH ×2 (14:58→15:56)
[2020-11-04] MEDS: ENOXAPARIN SOD INJ 40 MG/0.4 ML SYR SC SCH (16:05)
[2020-11-04] MEDS: CLOPIDOGREL BISULFATE 75 MG TAB PO SCH (18:15)
[2020-11-04] MEDS: COLLAGENASE 5 GM TUBE TOP SCH (18:37)
[2020-11-04] MEDS: BALSAM PERU/CASTOR OIL 60 GM OINT...G. TP SCH (18:37)
[2020-11-04] MEDS: MELATONIN 5 MG TABLET PO SCH (21:00)
[2020-11-04] MEDS: ATORVASTATIN 20 MG TAB PO SCH (22:11)
[2020-11-04] MEDS ORDERED: SODIUM CHLORIDE 0.9% 50ML 50 ML ONE (23:10)
[2020-11-05] VITALS: BP 139/72
[2020-11-05] MEDS: HYDROCODONE/APAP 5MG-325MG TAB PO PRN ×2 (03:59→09:21)
[2020-11-05 05:55] LABS: BASOPHILS % 0.7 % (0.0-1.0); EOSINOPHILS # (AUTO) 0.2 (0.0-0.4); EOSINOPHILS % 3.4 % (0.0-6.0); HEMATOCRIT 37.1 % (38.2-49.6); HEMOGLOBIN 12.2 g/dL (14.0-18.0); LYMPHOCYTES # (AUTO) 1.3 (1.0-3.2); LYMPHOCYTES % 28.9 % (18.0-39.1); MEAN CORPUSCULAR HGB CONC 32.9 g/dL (31-35); MEAN CORPUSCULAR VOLUME 88.3 fL (81-99); MONOCYTES # (AUTO) 0.5 (0.2-0.8); MONOCYTES % 10.7 % (4.4-11.3); NEUTROPHILS # (AUTO) 2.5 (2.1-6.9); NEUTROPHILS % 55.8 % (38.7-80.0); PLATELET COUNT 191 x10e3/uL (140-360); RED CELL DISTRIBUTION WIDTH 14.6 % (11.7-14.4)
[2020-11-05 06:11] LABS: ANION GAP 11.8 mmol/L (8-16); BLOOD UREA NITROGEN 16 mg/dL (7-26); BUN/CREATININE RATIO 20 (6-25); CALCIUM 8.4 mg/dL (8.4-10.2); CARBON DIOXIDE 25 mmol/L (22-29); CHLORIDE 105 mmol/L (98-107); CREATININE, SERUM 0.82 mg/dL (0.72-1.25); EST GLOMERULAR FILTRATION RATE > 60 ML/MIN (60-); GLUCOSE 164 mg/dL (74-118); POTASSIUM 3.8 mmol/L (3.5-5.1); SODIUM 138 mmol/L (136-145)
[2020-11-05 08:23] VITALS: BP 142/87
[2020-11-05 08:30] VITALS: BP 142/87
[2020-11-05] MEDS ORDERED: COLLAGENASE 5 GM TUBE TOP SCH (09:00)
[2020-11-05] MEDS: DESVENLAFAXINE SUCCINATE 50 MG TAB.SR.24H PO SCH (09:21)
[2020-11-05] MEDS: BALSAM PERU/CASTOR OIL 60 GM OINT...G. TP SCH (09:21)
[2020-11-05] MEDS: COLLAGENASE 5 GM TUBE TOP SCH (09:21)
[2020-11-05] MEDS: SITAGLIPTIN 100 MG TAB PO SCH (09:21)
[2020-11-05] MEDS: CLOPIDOGREL BISULFATE 75 MG TAB PO SCH (09:21)
[2020-11-05] MEDS: GABAPENTIN 300 MG CAP PO SCH (09:21)
[2020-11-05] MEDS: SILVER SULFADIAZINE 50GM CREAM TOP SCH (09:21)
[2020-11-05] MEDS: PANTOPRAZOLE SOD 40 MG TABEC PO SCH (09:22)
[2020-11-05] MEDS: ASPIRIN 325 MG TAB PO SCH (09:22)
[2020-11-05] MEDS: VANCOMYCIN 750MG/NS 150ML IVPB 150 ML IV SCH (09:32)
[2020-11-05] MEDS: LOSARTAN POTASSIUM 100 MG TAB PO SCH (09:33)
[2020-11-05 11:45] VITALS: BP 135/80
[2020-11-05] MEDS ORDERED: ONDANSETRON HCL 4 MG ORAL DISINTEGRATING TAB PO PRN (12:00)
== END 2020-11-05 13:20 | disposition home or self-care (01) | DRG 271 ==
LOC: ER 13:52 → ERHOLD 14:10 → MED/SURG3 17:29
PROVIDERS: ADMIT Internal Medicine; ATTEND Internal Medicine
PROC: 0JBP0ZZ Excision of Left Lower Leg Subcutaneous Tissue and Fascia, Open Approach (ICD-10-PCS; 2020-11-01)
PROC: 0JBR0ZZ Excision of Left Foot Subcutaneous Tissue and Fascia, Open Approach (ICD-10-PCS; 2020-11-01)
PROC: 0JBR0ZZ Excision of Left Foot Subcutaneous Tissue and Fascia, Open Approach (ICD-10-PCS; 2020-11-01)
PROC: 04CL3ZZ Extirpation of Matter from Left Femoral Artery, Percutaneous Approach (ICD-10-PCS; principal; 2020-11-03)
PROC: 047L3Z1 Dilation of Left Femoral Artery using Drug-Coated Balloon, Percutaneous Approach (ICD-10-PCS; 2020-11-03)
PROC: B41D1ZZ Fluoroscopy of Aorta and Bilateral Lower Extremity Arteries using Low Osmolar Contrast (ICD-10-PCS; 2020-11-03)
DX: E11.52 Type 2 diabetes mellitus with diabetic peripheral angiopathy with gangrene (principal); L03.115 Cellulitis of right lower limb; L97.828 Non-pressure chronic ulcer of other part of left lower leg with other specified severity; L97.818 Non-pressure chronic ulcer of other part of right lower leg with other specified severity; M86.8X7 Other osteomyelitis, ankle and foot; I70.92 Chronic total occlusion of artery of the extremities; I96 Gangrene, not elsewhere classified; Z20.822 Contact with and (suspected) exposure to COVID-19; E11.621 Type 2 diabetes mellitus with foot ulcer; I10 Essential (primary) hypertension; E66.01 Morbid (severe) obesity due to excess calories; Z68.35 Body mass index [BMI] 35.0-35.9, adult; I70.248 Atherosclerosis of native arteries of left leg with ulceration of other part of lower leg; I70.238 Atherosclerosis of native arteries of right leg with ulceration of other part of lower leg; E11.69 Type 2 diabetes mellitus with other specified complication; Z79.899 Other long term (current) drug therapy; I70.245 Atherosclerosis of native arteries of left leg with ulceration of other part of foot; Z98.2 Presence of cerebrospinal fluid drainage device
CPT/HCPCS: 36247; 36415; 37225; 70250; 70450; 75630; 80048; 80053; 80061; 80202; 82948; 83036; 83605; 83735; 84100; 84134; 84443; 85025; 85347; 85651; 86140; 87040; 87071; 87186; 87205; 93925; 99152; 99153; 99251; 99284; C1724; C1725; C1760; C1766; C1769; C1887; C1894; J0692; J1644; J1650; J2001; J2250; J2270; J2405; J3010; J3370; J7030; Q9967; U0002

== ENCOUNTER 2020-11-17 14:23 | Emergency (ER) | payer MEDICARE ==
[~2020-11-17] VITALS: Ht 180.3 cm; Wt 114.8 kg
[~2020-11-17 14:23] MED LIST changes: +ATORVASTATIN CA40 MG PO; +GLIPIZIDE5 MG PO; +MELATONIN3 MG PO
[2020-11-17] MEDS ORDERED: LACTATED RINGER'S 1,000 ML INJ ONE (15:15)
[2020-11-17 15:57] LABS: BASOPHILS # (AUTO) 0.1 (0.0-0.1); BASOPHILS % 0.8 % (0.0-1.0); EOSINOPHILS # (AUTO) 0.1 (0.0-0.4); EOSINOPHILS % 1.1 % (0.0-6.0); HEMATOCRIT 35.3 % (38.2-49.6); HEMOGLOBIN 11.5 g/dL (14.0-18.0); LYMPHOCYTES # (AUTO) 1.4 (1.0-3.2); LYMPHOCYTES % 22.4 % (18.0-39.1); MEAN CORPUSCULAR HEMOGLOBIN 29.1 pg (28-32); MEAN CORPUSCULAR HGB CONC 32.6 g/dL (31-35); MEAN CORPUSCULAR VOLUME 89.4 fL (81-99); MONOCYTES # (AUTO) 0.5 (0.2-0.8); MONOCYTES % 7.5 % (4.4-11.3); NEUTROPHILS # (AUTO) 4.2 (2.1-6.9); NEUTROPHILS % 67.9 % (38.7-80.0); PLATELET COUNT 220 x10e3/uL (140-360); RED BLOOD COUNT 3.95 x10e6/uL (4.3-5.7); RED CELL DISTRIBUTION WIDTH 14.1 % (11.7-14.4)
[2020-11-17 16:16] LABS: ALBUMIN 3.4 g/dL (3.5-5.0); ANION GAP 16.6 mmol/L (8-16); CALCIUM 9.1 mg/dL (8.4-10.2); CREATININE, SERUM 1.3 mg/dL (0.72-1.25); POTASSIUM 4.6 mmol/L (3.5-5.1)
== END 2020-11-17 17:34 | disposition home or self-care (01) ==
LOC: ER 14:42
DX: R55 Syncope and collapse (principal); T50.995A Adverse effect of other drugs, medicaments and biological substances, initial encounter; E11.65 Type 2 diabetes mellitus with hyperglycemia; I10 Essential (primary) hypertension
CPT/HCPCS: 36415; 70450; 80053; 82948; 84484; 85025; 93005; 99284

== ENCOUNTER 2020-11-24 14:10 | Outpatient (RCR) | payer MEDICARE ==
[~2020-11-24 14:10] MED LIST changes: +LIDOCAINE/PRILOCAINE 2.5-2.5% KIT ONE; +TRIAMCINOLONE ACET 0.1% CREAM 15 GM TUBE ONE
== END 2020-11-29 ==
LOC: WCC 14:10
PROVIDERS: ATTEND Podiatrist
DX: E11.621 Type 2 diabetes mellitus with foot ulcer (principal); E11.622 Type 2 diabetes mellitus with other skin ulcer; E11.51 Type 2 diabetes mellitus with diabetic peripheral angiopathy without gangrene; L97.411 Non-pressure chronic ulcer of right heel and midfoot limited to breakdown of skin; L97.421 Non-pressure chronic ulcer of left heel and midfoot limited to breakdown of skin; L97.821 Non-pressure chronic ulcer of other part of left lower leg limited to breakdown of skin; L03.115 Cellulitis of right lower limb; B96.89 Other specified bacterial agents as the cause of diseases classified elsewhere; E66.01 Morbid (severe) obesity due to excess calories; Z68.35 Body mass index [BMI] 35.0-35.9, adult

== ENCOUNTER 2020-12-01 14:15 | Outpatient (RCR) | payer MEDICARE ==
[~2020-12-01 14:15] MED LIST changes: +COLLAGENASE OINTMENT 30 GM TUBE ONE; +LIDOCAINE VISC 2% SOLN 15 ML UDC ONE; -LIDOCAINE/PRILOCAINE 2.5-2.5% KIT ONE; +MUPIROCIN 2% OINT 22 GM TUBE ONE; -TRIAMCINOLONE ACET 0.1% CREAM 15 GM TUBE ONE
[2020-12-08] MEDS ORDERED: HYDROCODON-ACE1 EAC9 PO (13:19)
[2020-12-08] MEDS ORDERED: METFORMIN HCL1000 MG PO (13:19)
[2020-12-08] MEDS ORDERED: TIZANIDINE HCL4 M1 PO (13:19)
[2020-12-08] MEDS ORDERED: PENTOXIFYLLINE400 MG PO (13:19)
[2020-12-08] MEDS ORDERED: tylenol #4 PO (13:19)
[2020-12-16] MEDS ORDERED: HYDROCODON-ACE1 EA11 PO (15:19)
[2020-12-16] MEDS ORDERED: FAMOTIDINE20 MG PO (15:19)
[2020-12-16] MEDS ORDERED: CEFTRIAXONE2 G1 IV (15:19)
[2020-12-16] MEDS ORDERED: COLACE100 MG PO (15:19)
[2020-12-16] MEDS ORDERED: CHOLESTYRAMINE L4 GM PO (15:19)
[2020-12-16] MEDS ORDERED: ONDANSETRON ODT4 MG PO (15:19)
[2020-12-16] MEDS ORDERED: AMIODARONE HCL200 MG PO (15:19)
[2020-12-16] MEDS ORDERED: COREG12.5 MG PO (15:19)
[2020-12-16] MEDS ORDERED: HUMULIN R100 UNIT/2 SQ (15:19)
[2020-12-16] MEDS ORDERED: GABAPENTIN400 MG PO (15:19)
[2020-12-16] MEDS ORDERED: MELATONIN5 M2 PO (15:19)
[2020-12-16] MEDS ORDERED: ACETAMINOPHEN325 M1 PO (15:19)
[2020-12-16] MEDS ORDERED: METFORMIN HCL500 MG PO (15:19)
[2020-12-16] MEDS ORDERED: EUCERIN ORIGIN250 ML TOP (15:19)
[2020-12-16] MEDS ORDERED: SENNA S TABLET1 EACH PO (15:19)
== END 2020-12-29 ==
LOC: WCC 14:15
PROVIDERS: ATTEND Internal Medicine Infectious Disease
DX: E11.621 Type 2 diabetes mellitus with foot ulcer (principal); E11.622 Type 2 diabetes mellitus with other skin ulcer; E11.51 Type 2 diabetes mellitus with diabetic peripheral angiopathy without gangrene; L03.115 Cellulitis of right lower limb; L97.411 Non-pressure chronic ulcer of right heel and midfoot limited to breakdown of skin; L97.421 Non-pressure chronic ulcer of left heel and midfoot limited to breakdown of skin; L97.821 Non-pressure chronic ulcer of other part of left lower leg limited to breakdown of skin; S81.802A Unspecified open wound, left lower leg, initial encounter; B96.89 Other specified bacterial agents as the cause of diseases classified elsewhere; E66.01 Morbid (severe) obesity due to excess calories; Z68.35 Body mass index [BMI] 35.0-35.9, adult; W45.8XXA Other foreign body or object entering through skin, initial encounter

== ENCOUNTER 2020-12-08 10:46 | Inpatient (IN) | payer MEDICARE ==
[~2020-12-08] VITALS: Ht 180.3 cm; Wt 114.8 kg
[~2020-12-08 10:46] MED LIST changes: -COLLAGENASE OINTMENT 30 GM TUBE ONE; -LIDOCAINE VISC 2% SOLN 15 ML UDC ONE; -MUPIROCIN 2% OINT 22 GM TUBE ONE
[2020-12-08] MEDS: SODIUM CHLORIDE 0.9% 1000ML 1,000 ML IV SCH ×4 (11:18→16:44)
[2020-12-08 11:29] LABS: BASOPHILS % 0.4 % (0.0-1.0); EOSINOPHILS # (AUTO) 0.1 (0.0-0.4); EOSINOPHILS % 0.5 % (0.0-6.0); HEMATOCRIT 36.1 % (38.2-49.6); HEMOGLOBIN 11.5 g/dL (14.0-18.0); LYMPHOCYTES # (AUTO) 1.3 (1.0-3.2); LYMPHOCYTES % 14.2 % (18.0-39.1); MEAN CORPUSCULAR HEMOGLOBIN 28.8 pg (28-32); MEAN CORPUSCULAR HGB CONC 31.9 g/dL (31-35); MEAN CORPUSCULAR VOLUME 90.3 fL (81-99); MONOCYTES # (AUTO) 0.5 (0.2-0.8); MONOCYTES % 5.2 % (4.4-11.3); NEUTROPHILS # (AUTO) 7.3 (2.1-6.9); NEUTROPHILS % 79.3 % (38.7-80.0); PLATELET COUNT 238 x10e3/uL (140-360)
[2020-12-08] MEDS: CEFEPIME 1 GM in SODIUM CHLORIDE 0.9% 50ML 50 ML IV SCH ×2 (11:31→20:35)
[2020-12-08] MEDS ORDERED: CEFEPIME HCL 1 GM VIAL ONE (11:36)
[2020-12-08] MEDS ORDERED: SODIUM CHLORIDE 0.9% 50ML 50 ML ONE (11:36)
[2020-12-08] MEDS ORDERED: SODIUM CHLORIDE 0.9% 1000ML 1,000 ML IV ONE (11:45)
[2020-12-08] MEDS: VANCOMYCIN 1GM/NS 250 ML 250 ML IV SCH (11:45)
[2020-12-08 12:02] LABS: ALBUMIN 3.2 g/dL (3.5-5.0); ALBUMIN/GLOBULIN RATIO 0.8 (0.8-2.0); ANION GAP 16.2 mmol/L (8-16); CALCIUM 9.1 mg/dL (8.4-10.2); CREATININE, SERUM 1.35 mg/dL (0.72-1.25); POTASSIUM 5.2 mmol/L (3.5-5.1)
[2020-12-08] MEDS ORDERED: MORPHINE SULFATE INJ 2 MG/ML SYR IV PRN (12:15)
[2020-12-08] MEDS ORDERED: ONDANSETRON HCL INJ 2MG/ML 2ML 2 MG/ML VIAL IV PRN (12:15)
[2020-12-08] MEDS ORDERED: MORPHINE SULFATE INJ 4 MG/ML INJ 1ML IV PRN ×2 (12:45→20:45)
[2020-12-08] MEDS ORDERED: TIZANIDINE HCL4 M1 PO (13:19)
[2020-12-08] MEDS ORDERED: HYDROCODON-ACE1 EAC9 PO (13:19)
[2020-12-08] MEDS ORDERED: METFORMIN HCL1000 MG PO (13:19)
[2020-12-08] MEDS ORDERED: tylenol #4 PO (13:19)
[2020-12-08] MEDS ORDERED: PENTOXIFYLLINE400 MG PO (13:19)
[2020-12-08 16:15] VITALS: BP 123/54
[2020-12-08] MEDS ORDERED: HYDROCODONE/APAP 5MG-325MG TAB PO ONE (16:45)
[2020-12-08] MEDS ORDERED: ACETAMINOPHEN 325 MG TAB PO PRN (17:00)
[2020-12-08] MEDS ORDERED: DOCUSATE SODIUM 100 MG CAP PO PRN (17:00)
[2020-12-08] MEDS ORDERED: NON-FORMULARY MEDICATION (Metformin Hcl 1,000 MG) PO SCH (17:00)
[2020-12-08 17:04] VITALS: BP 123/54
[2020-12-08 17:31] VITALS: BP 123/54
[2020-12-08] MEDS: METFORMIN HCL 500 MG TAB PO SCH (17:43)
[2020-12-08] MEDS ORDERED: DEXTROSE 50% SYRINGE 50 ML IV PRN (19:45)
[2020-12-08 20:11] VITALS: BP 146/83
[2020-12-08] MEDS ORDERED: MORPHINE SULFATE INJ 2 MG/ML SYR IV ONE (20:20)
[2020-12-08] MEDS: ATORVASTATIN 40 MG TAB PO SCH (20:21)
[2020-12-08] MEDS: INSULIN REGULAR, HUMAN 100 UNIT/1 ML 3ML VIAL SQ SCH (20:21)
[2020-12-08] MEDS: GABAPENTIN 400 MG CAP PO SCH (20:22)
[2020-12-08 21:06] VITALS: BP 146/83
[2020-12-08] MEDS: HYDROCODONE/APAP 5MG-325MG TAB PO PRN (22:15)
[2020-12-09] VITALS (8 sets, daily range): BP systolic 107–155; BP diastolic 59–88
[2020-12-09] MEDS: VANCOMYCIN 1GM/NS 250 ML 250 ML IV SCH ×2 (00:33→12:48)
[2020-12-09] MEDS: MORPHINE SULFATE INJ 2 MG/ML SYR IV PRN ×3 (02:10→21:37)
[2020-12-09 04:56] LABS: BASOPHILS % 0.8 % (0.0-1.0); EOSINOPHILS # (AUTO) 0.1 (0.0-0.4); EOSINOPHILS % 2.8 % (0.0-6.0); LYMPHOCYTES # (AUTO) 1.3 (1.0-3.2); LYMPHOCYTES % 25.6 % (18.0-39.1); MEAN CORPUSCULAR HEMOGLOBIN 28.4 pg (28-32); MEAN CORPUSCULAR HGB CONC 31.3 g/dL (31-35); MEAN CORPUSCULAR VOLUME 90.9 fL (81-99); MONOCYTES # (AUTO) 0.4 (0.2-0.8); MONOCYTES % 8.9 % (4.4-11.3); NEUTROPHILS % 61.5 % (38.7-80.0); PLATELET COUNT 209 x10e3/uL (140-360); RED BLOOD COUNT 3.52 x10e6/uL (4.3-5.7)
[2020-12-09 05:21] LABS: ANION GAP 12.4 mmol/L (8-16); BLOOD UREA NITROGEN 12 mg/dL (7-26); BUN/CREATININE RATIO 15 (6-25); CALCIUM 8.5 mg/dL (8.4-10.2); CARBON DIOXIDE 26 mmol/L (22-29); CHLORIDE 106 mmol/L (98-107); EST GLOMERULAR FILTRATION RATE > 60 ML/MIN (60-); GLUCOSE 100 mg/dL (74-118); POTASSIUM 4.4 mmol/L (3.5-5.1); SODIUM 140 mmol/L (136-145)
[2020-12-09] MEDS: HYDROCODONE/APAP 5MG-325MG TAB PO PRN ×3 (05:55→18:57)
[2020-12-09] MEDS: INSULIN REGULAR, HUMAN 100 UNIT/1 ML 3ML VIAL SQ SCH ×4 (07:24→20:34)
[2020-12-09] MEDS: FAMOTIDINE 20 MG TAB PO SCH (08:23)
[2020-12-09] MEDS: METFORMIN HCL 500 MG TAB PO SCH ×2 (08:24→16:09)
[2020-12-09] MEDS: GABAPENTIN 400 MG CAP PO SCH ×3 (08:24→20:40)
[2020-12-09] MEDS: LOSARTAN POTASSIUM 100 MG TAB PO SCH (08:25)
[2020-12-09] MEDS: CEFEPIME 1 GM in SODIUM CHLORIDE 0.9% 50ML 50 ML IV SCH ×2 (08:32→20:39)
[2020-12-09] MEDS ORDERED: ONDANSETRON HCL 4 MG ORAL DISINTEGRATING TAB PO PRN (19:15)
[2020-12-09] MEDS: ATORVASTATIN 40 MG TAB PO SCH (20:40)
[2020-12-10] VITALS (21 sets, daily range): BP systolic 132–209; BP diastolic 52–196
[2020-12-10] MEDS: VANCOMYCIN 1GM/NS 250 ML 250 ML IV SCH ×3 (00:53→23:56)
[2020-12-10] MEDS: HYDROCODONE/APAP 5MG-325MG TAB PO PRN ×3 (01:00→20:57)
[2020-12-10] MEDS: METOPROLOL TARTRATE INJ 1 MG/ML VIAL IV PRN (01:41)
[2020-12-10] MEDS ORDERED: METOPROLOL TARTRATE INJ 1 MG/ML VIAL ONE (01:47)
[2020-12-10] MEDS ORDERED: DIGOXIN INJ 0.25 MG/ML 2 ML AMP IV PRN (02:00)
[2020-12-10] MEDS ORDERED: AMIODARONE HCL 150 MG/100 ML BAG IV ONE (02:30)
[2020-12-10] MEDS ORDERED: AMIODARONE 900MG 500 ML IV ONE ×2 (02:30→02:37)
[2020-12-10] MEDS ORDERED: AMIODARONE HCL 100 ML IV ONE (02:37)
[2020-12-10] MEDS: MORPHINE SULFATE INJ 2 MG/ML SYR IV PRN (02:44)
[2020-12-10 06:04] LABS: BASOPHILS # (AUTO) 0.1 (0.0-0.1); EOSINOPHILS # (AUTO) 0.2 (0.0-0.4); EOSINOPHILS % 3.7 % (0.0-6.0); HEMATOCRIT 35.6 % (38.2-49.6); HEMOGLOBIN 11.2 g/dL (14.0-18.0); LYMPHOCYTES # (AUTO) 1.2 (1.0-3.2); LYMPHOCYTES % 24.2 % (18.0-39.1); MEAN CORPUSCULAR HEMOGLOBIN 28.1 pg (28-32); MEAN CORPUSCULAR HGB CONC 31.5 g/dL (31-35); MEAN CORPUSCULAR VOLUME 89.2 fL (81-99); MONOCYTES # (AUTO) 0.4 (0.2-0.8); MONOCYTES % 7.7 % (4.4-11.3); NEUTROPHILS # (AUTO) 3.2 (2.1-6.9); NEUTROPHILS % 63.2 % (38.7-80.0); PLATELET COUNT 231 x10e3/uL (140-360); RED BLOOD COUNT 3.99 x10e6/uL (4.3-5.7); RED CELL DISTRIBUTION WIDTH 13.7 % (11.7-14.4)
[2020-12-10 06:37] LABS: ANION GAP 14.2 mmol/L (8-16); BLOOD UREA NITROGEN 8 mg/dL (7-26); BUN/CREATININE RATIO 11 (6-25); CALCIUM 8.7 mg/dL (8.4-10.2); CARBON DIOXIDE 26 mmol/L (22-29); CHLORIDE 104 mmol/L (98-107); CREATININE, SERUM 0.73 mg/dL (0.72-1.25); EST GLOMERULAR FILTRATION RATE > 60 ML/MIN (60-); GLUCOSE 139 mg/dL (74-118); POTASSIUM 4.2 mmol/L (3.5-5.1); SODIUM 140 mmol/L (136-145)
[2020-12-10 07:01] LABS: CREATINE KINASE MB 2.3 ng/mL (0-5.0)
[2020-12-10] MEDS: INSULIN REGULAR, HUMAN 100 UNIT/1 ML 3ML VIAL SQ SCH ×4 (07:30→21:00)
[2020-12-10] MEDS: FAMOTIDINE 20 MG TAB PO SCH (07:40)
[2020-12-10] MEDS: METFORMIN HCL 500 MG TAB PO SCH ×2 (07:42→17:05)
[2020-12-10] MEDS: CEFEPIME 1 GM in SODIUM CHLORIDE 0.9% 50ML 50 ML IV SCH ×2 (08:04→20:56)
[2020-12-10] MEDS: GABAPENTIN 400 MG CAP PO SCH ×3 (08:04→20:56)
[2020-12-10] MEDS: LOSARTAN POTASSIUM 100 MG TAB PO SCH (08:04)
[2020-12-10] MEDS: HYDRALAZINE HCL 20 MG/ML VIAL IV PRN (14:05)
[2020-12-10] MEDS ORDERED: NON-FORMULARY MEDICATION (Gabapentin 800 MG) PO SCH (15:00)
[2020-12-10] MEDS ORDERED: GABAPENTIN 400 MG CAP PO ONE (15:30)
[2020-12-10] MEDS: CARVEDILOL 12.5 MG TAB PO SCH (17:04)
[2020-12-10] MEDS: ATORVASTATIN 40 MG TAB PO SCH (20:56)
[2020-12-11] VITALS (24 sets, daily range): BP systolic 125–192; BP diastolic 59–88
[2020-12-11] MEDS: MORPHINE SULFATE INJ 2 MG/ML SYR IV PRN (00:10)
[2020-12-11] MEDS: HYDROCODONE/APAP 5MG-325MG TAB PO PRN ×2 (03:05→23:03)
[2020-12-11] MEDS ORDERED: AMIODARONE 900MG 500 ML IV ONE (03:50)
[2020-12-11 05:34] LABS: BASOPHILS # (AUTO) 0.1 (0.0-0.1); BASOPHILS % 0.9 % (0.0-1.0); EOSINOPHILS # (AUTO) 0.2 (0.0-0.4); EOSINOPHILS % 3.7 % (0.0-6.0); HEMATOCRIT 37.2 % (38.2-49.6); HEMOGLOBIN 11.8 g/dL (14.0-18.0); LYMPHOCYTES # (AUTO) 1.5 (1.0-3.2); LYMPHOCYTES % 25.4 % (18.0-39.1); MEAN CORPUSCULAR HEMOGLOBIN 28.4 pg (28-32); MEAN CORPUSCULAR HGB CONC 31.7 g/dL (31-35); MEAN CORPUSCULAR VOLUME 89.6 fL (81-99); MONOCYTES # (AUTO) 0.6 (0.2-0.8); MONOCYTES % 9.5 % (4.4-11.3); NEUTROPHILS # (AUTO) 3.5 (2.1-6.9); NEUTROPHILS % 60.2 % (38.7-80.0); PLATELET COUNT 244 x10e3/uL (140-360); RED BLOOD COUNT 4.15 x10e6/uL (4.3-5.7); RED CELL DISTRIBUTION WIDTH 13.8 % (11.7-14.4)
[2020-12-11 05:56] LABS: ALANINE AMINOTRANSFERASE 21 IU/L (0-55); ALBUMIN 3.2 g/dL (3.5-5.0); ALBUMIN/GLOBULIN RATIO 0.8 (0.8-2.0); ALKALINE PHOSPHATASE 104 IU/L (40-150); BLOOD UREA NITROGEN 8 mg/dL (7-26); BUN/CREATININE RATIO 10 (6-25); CALCIUM 9.1 mg/dL (8.4-10.2); CARBON DIOXIDE 26 mmol/L (22-29); CHLORIDE 103 mmol/L (98-107); CREATININE, SERUM 0.78 mg/dL (0.72-1.25); EST GLOMERULAR FILTRATION RATE > 60 ML/MIN (60-); GLUCOSE 120 mg/dL (74-118); SODIUM 139 mmol/L (136-145)
[2020-12-11] MEDS: INSULIN REGULAR, HUMAN 100 UNIT/1 ML 3ML VIAL SQ SCH ×4 (07:16→20:39)
[2020-12-11] MEDS: FAMOTIDINE 20 MG TAB PO SCH (07:47)
[2020-12-11] MEDS: CEFEPIME 1 GM in SODIUM CHLORIDE 0.9% 50ML 50 ML IV SCH ×2 (08:15→20:39)
[2020-12-11] MEDS: METFORMIN HCL 500 MG TAB PO SCH ×2 (08:15→16:46)
[2020-12-11] MEDS: CARVEDILOL 12.5 MG TAB PO SCH ×2 (08:15→16:46)
[2020-12-11] MEDS: LOSARTAN POTASSIUM 100 MG TAB PO SCH (08:16)
[2020-12-11] MEDS: GABAPENTIN 400 MG CAP PO SCH ×3 (08:16→20:39)
[2020-12-11] MEDS: VANCOMYCIN 1GM/NS 250 ML 250 ML IV SCH ×2 (12:30→23:33)
[2020-12-11] MEDS: AMIODARONE HCL 200 MG TAB PO SCH (17:16)
[2020-12-11] MEDS: ATORVASTATIN 40 MG TAB PO SCH (20:39)
[2020-12-11] MEDS: HYDRALAZINE HCL 20 MG/ML VIAL IV PRN (21:08)
[2020-12-12] VITALS (11 sets, daily range): BP systolic 129–177; BP diastolic 63–88
[2020-12-12] MEDS: METOPROLOL TARTRATE INJ 1 MG/ML VIAL IV PRN (01:01)
[2020-12-12] MEDS: HYDRALAZINE HCL 20 MG/ML VIAL IV PRN (04:10)
[2020-12-12 06:29] LABS: BASOPHILS % 0.5 % (0.0-1.0); EOSINOPHILS # (AUTO) 0.1 (0.0-0.4); EOSINOPHILS % 1.1 % (0.0-6.0); HEMOGLOBIN 13.2 g/dL (14.0-18.0); LYMPHOCYTES # (AUTO) 1.3 (1.0-3.2); LYMPHOCYTES % 18.1 % (18.0-39.1); MEAN CORPUSCULAR HEMOGLOBIN 28.3 pg (28-32); MEAN CORPUSCULAR HGB CONC 32.2 g/dL (31-35); MONOCYTES # (AUTO) 0.7 (0.2-0.8); MONOCYTES % 9.3 % (4.4-11.3); NEUTROPHILS # (AUTO) 5.1 (2.1-6.9); NEUTROPHILS % 70.5 % (38.7-80.0); PLATELET COUNT 243 x10e3/uL (140-360); RED BLOOD COUNT 4.66 x10e6/uL (4.3-5.7); RED CELL DISTRIBUTION WIDTH 13.7 % (11.7-14.4)
[2020-12-12 06:59] LABS: ALANINE AMINOTRANSFERASE 26 IU/L (0-55); ALBUMIN 3.3 g/dL (3.5-5.0); ALBUMIN/GLOBULIN RATIO 0.8 (0.8-2.0); ALKALINE PHOSPHATASE 105 IU/L (40-150); BLOOD UREA NITROGEN 8 mg/dL (7-26); BUN/CREATININE RATIO 10 (6-25); CALCIUM 9.1 mg/dL (8.4-10.2); CARBON DIOXIDE 23 mmol/L (22-29); CHLORIDE 101 mmol/L (98-107); CREATININE, SERUM 0.77 mg/dL (0.72-1.25); EST GLOMERULAR FILTRATION RATE > 60 ML/MIN (60-); GLUCOSE 139 mg/dL (74-118); MAGNESIUM 1.6 MG/DL (1.3-2.1); PHOSPHORUS 3.1 MG/DL (2.3-4.7); SODIUM 139 mmol/L (136-145)
[2020-12-12] MEDS: FAMOTIDINE 20 MG TAB PO SCH (08:01)
[2020-12-12] MEDS: METFORMIN HCL 500 MG TAB PO SCH ×2 (08:02→16:45)
[2020-12-12] MEDS: CEFEPIME 1 GM in SODIUM CHLORIDE 0.9% 50ML 50 ML IV SCH ×2 (08:02→23:04)
[2020-12-12] MEDS: GABAPENTIN 400 MG CAP PO SCH ×3 (08:02→22:54)
[2020-12-12] MEDS: LOSARTAN POTASSIUM 100 MG TAB PO SCH (08:02)
[2020-12-12] MEDS: CARVEDILOL 12.5 MG TAB PO SCH ×2 (08:02→16:45)
[2020-12-12] MEDS: AMIODARONE HCL 200 MG TAB PO SCH ×2 (08:02→16:45)
[2020-12-12] MEDS: INSULIN REGULAR, HUMAN 100 UNIT/1 ML 3ML VIAL SQ SCH ×4 (08:15→21:00)
[2020-12-12] MEDS: VANCOMYCIN 1GM/NS 250 ML 250 ML IV SCH (13:48)
[2020-12-12] MEDS: ATORVASTATIN 40 MG TAB PO SCH (22:54)
[2020-12-12] MEDS ORDERED: SODIUM CHLORIDE 0.9% 250ML 250 ML ONE (23:06)
[2020-12-13] VITALS (7 sets, daily range): BP systolic 106–152; BP diastolic 58–71
[2020-12-13] MEDS: VANCOMYCIN 1GM/NS 250 ML 250 ML IV SCH ×3 (00:32→23:26)
[2020-12-13 05:14] LABS: BASOPHILS % 0.6 % (0.0-1.0); EOSINOPHILS # (AUTO) 0.1 (0.0-0.4); EOSINOPHILS % 0.7 % (0.0-6.0); HEMATOCRIT 35.2 % (38.2-49.6); HEMOGLOBIN 11.2 g/dL (14.0-18.0); LYMPHOCYTES # (AUTO) 1.5 (1.0-3.2); LYMPHOCYTES % 21.6 % (18.0-39.1); MEAN CORPUSCULAR HEMOGLOBIN 27.7 pg (28-32); MEAN CORPUSCULAR HGB CONC 31.8 g/dL (31-35); MEAN CORPUSCULAR VOLUME 86.9 fL (81-99); MONOCYTES # (AUTO) 0.8 (0.2-0.8); MONOCYTES % 11.1 % (4.4-11.3); NEUTROPHILS # (AUTO) 4.7 (2.1-6.9); NEUTROPHILS % 65.7 % (38.7-80.0); PLATELET COUNT 259 x10e3/uL (140-360); RED BLOOD COUNT 4.05 x10e6/uL (4.3-5.7); RED CELL DISTRIBUTION WIDTH 13.9 % (11.7-14.4)
[2020-12-13 05:47] LABS: ANION GAP 14.5 mmol/L (8-16); BLOOD UREA NITROGEN 9 mg/dL (7-26); BUN/CREATININE RATIO 12 (6-25); CARBON DIOXIDE 25 mmol/L (22-29); CHLORIDE 104 mmol/L (98-107); CREATININE, SERUM 0.77 mg/dL (0.72-1.25); EST GLOMERULAR FILTRATION RATE > 60 ML/MIN (60-); GLUCOSE 129 mg/dL (74-118); POTASSIUM 3.5 mmol/L (3.5-5.1); SODIUM 140 mmol/L (136-145)
[2020-12-13] MEDS: INSULIN REGULAR, HUMAN 100 UNIT/1 ML 3ML VIAL SQ SCH ×4 (08:00→21:00)
[2020-12-13] MEDS: AMIODARONE HCL 200 MG TAB PO SCH ×2 (09:11→17:30)
[2020-12-13] MEDS: FAMOTIDINE 20 MG TAB PO SCH (09:11)
[2020-12-13] MEDS: CARVEDILOL 12.5 MG TAB PO SCH ×2 (09:11→17:30)
[2020-12-13] MEDS: METFORMIN HCL 500 MG TAB PO SCH ×2 (09:11→17:30)
[2020-12-13] MEDS: CEFEPIME 1 GM in SODIUM CHLORIDE 0.9% 50ML 50 ML IV SCH ×2 (09:11→20:53)
[2020-12-13] MEDS: GABAPENTIN 400 MG CAP PO SCH ×3 (09:12→20:54)
[2020-12-13] MEDS: LOSARTAN POTASSIUM 100 MG TAB PO SCH (09:12)
[2020-12-13] MEDS: HYDROCODONE/APAP 5MG-325MG TAB PO PRN (15:50)
[2020-12-13] MEDS: MORPHINE SULFATE INJ 2 MG/ML SYR IV PRN (18:57)
[2020-12-13] MEDS: ATORVASTATIN 40 MG TAB PO SCH (20:54)
[2020-12-13] MEDS: MELATONIN 5 MG TABLET PO PRN (21:08)
[2020-12-14] VITALS (8 sets, daily range): BP systolic 98–121; BP diastolic 49–54
[2020-12-14] MEDS: HYDROCODONE/APAP 5MG-325MG TAB PO PRN ×3 (02:52→22:21)
[2020-12-14 05:08] LABS: BASOPHILS % 0.5 % (0.0-1.0); EOSINOPHILS # (AUTO) 0.1 (0.0-0.4); EOSINOPHILS % 1.3 % (0.0-6.0); HEMATOCRIT 33.8 % (38.2-49.6); HEMOGLOBIN 10.9 g/dL (14.0-18.0); LYMPHOCYTES # (AUTO) 1.7 (1.0-3.2); LYMPHOCYTES % 22.4 % (18.0-39.1); MEAN CORPUSCULAR HEMOGLOBIN 28.2 pg (28-32); MEAN CORPUSCULAR HGB CONC 32.2 g/dL (31-35); MEAN CORPUSCULAR VOLUME 87.3 fL (81-99); MONOCYTES # (AUTO) 0.8 (0.2-0.8); MONOCYTES % 10.2 % (4.4-11.3); NEUTROPHILS # (AUTO) 4.8 (2.1-6.9); NEUTROPHILS % 64.8 % (38.7-80.0); PLATELET COUNT 222 x10e3/uL (140-360); RED BLOOD COUNT 3.87 x10e6/uL (4.3-5.7); RED CELL DISTRIBUTION WIDTH 13.9 % (11.7-14.4)
[2020-12-14 05:28] LABS: ANION GAP 15.6 mmol/L (8-16); BLOOD UREA NITROGEN 15 mg/dL (7-26); BUN/CREATININE RATIO 15 (6-25); CALCIUM 8.7 mg/dL (8.4-10.2); CARBON DIOXIDE 24 mmol/L (22-29); CHLORIDE 103 mmol/L (98-107); CREATININE, SERUM 0.98 mg/dL (0.72-1.25); EST GLOMERULAR FILTRATION RATE > 60 ML/MIN (60-); GLUCOSE 126 mg/dL (74-118); POTASSIUM 3.6 mmol/L (3.5-5.1); SODIUM 139 mmol/L (136-145)
[2020-12-14] MEDS: INSULIN REGULAR, HUMAN 100 UNIT/1 ML 3ML VIAL SQ SCH ×4 (07:30→21:00)
[2020-12-14] MEDS: AMIODARONE HCL 200 MG TAB PO SCH ×2 (09:00→16:42)
[2020-12-14] MEDS: CEFEPIME 1 GM in SODIUM CHLORIDE 0.9% 50ML 50 ML IV SCH (09:00)
[2020-12-14] MEDS: METFORMIN HCL 500 MG TAB PO SCH ×2 (09:00→16:42)
[2020-12-14] MEDS: LOSARTAN POTASSIUM 100 MG TAB PO SCH (09:00)
[2020-12-14] MEDS: FAMOTIDINE 20 MG TAB PO SCH (09:00)
[2020-12-14] MEDS: GABAPENTIN 400 MG CAP PO SCH ×3 (09:00→21:26)
[2020-12-14] MEDS: CARVEDILOL 12.5 MG TAB PO SCH ×2 (09:00→16:42)
[2020-12-14] MEDS: CEFTRIAXONE 2 GM in SODIUM CHLORIDE 0.9% 100 ML IV SCH (15:38)
[2020-12-14] MEDS ORDERED: SENNA-S TABLET PO PRN (16:45)
[2020-12-14] MEDS: ATORVASTATIN 40 MG TAB PO SCH (21:26)
[2020-12-14] MEDS: MELATONIN 5 MG TABLET PO PRN (22:21)
[2020-12-15] VITALS (8 sets, daily range): BP systolic 115–128; BP diastolic 56–93
[2020-12-15] MEDS: HYDROCODONE/APAP 5MG-325MG TAB PO PRN ×2 (05:20→21:07)
[2020-12-15 06:19] LABS: ANION GAP 15.8 mmol/L (8-16); BLOOD UREA NITROGEN 16 mg/dL (7-26); BUN/CREATININE RATIO 15 (6-25); CALCIUM 8.6 mg/dL (8.4-10.2); CARBON DIOXIDE 25 mmol/L (22-29); CHLORIDE 104 mmol/L (98-107); CREATININE, SERUM 1.09 mg/dL (0.72-1.25); EST GLOMERULAR FILTRATION RATE > 60 ML/MIN (60-); GLUCOSE 111 mg/dL (74-118); POTASSIUM 3.8 mmol/L (3.5-5.1); SODIUM 141 mmol/L (136-145)
[2020-12-15] MEDS: INSULIN REGULAR, HUMAN 100 UNIT/1 ML 3ML VIAL SQ SCH ×4 (07:30→20:57)
[2020-12-15] MEDS ORDERED: CEFTRIAXONE 2 GM in SODIUM CHLORIDE 0.9% 100 ML IV SCH (09:00)
[2020-12-15] MEDS: FAMOTIDINE 20 MG TAB PO SCH (09:24)
[2020-12-15] MEDS: METFORMIN HCL 500 MG TAB PO SCH ×2 (09:24→16:17)
[2020-12-15] MEDS: AMIODARONE HCL 200 MG TAB PO SCH ×2 (09:24→16:17)
[2020-12-15] MEDS: GABAPENTIN 400 MG CAP PO SCH ×3 (09:25→21:00)
[2020-12-15] MEDS: LOSARTAN POTASSIUM 100 MG TAB PO SCH (09:25)
[2020-12-15] MEDS: CARVEDILOL 12.5 MG TAB PO SCH ×2 (09:25→16:17)
[2020-12-15] MEDS: CEFTRIAXONE 2 GM in SODIUM CHLORIDE 0.9% 100 ML IV SCH (13:57)
[2020-12-15] MEDS: CHOLESTYRAMINE 4 GM PACKET PO SCH (21:00)
[2020-12-15] MEDS: ATORVASTATIN 40 MG TAB PO SCH (21:00)
[2020-12-15] MEDS: MELATONIN 5 MG TABLET PO PRN (21:07)
[2020-12-16] MEDS: HYDROCODONE/APAP 5MG-325MG TAB PO PRN (04:41)
[2020-12-16 06:22] VITALS: BP 137/63
[2020-12-16] MEDS: INSULIN REGULAR, HUMAN 100 UNIT/1 ML 3ML VIAL SQ SCH ×3 (07:30→16:30)
[2020-12-16 07:59] VITALS: BP 156/59
[2020-12-16] MEDS ORDERED: MORPHINE SULFATE INJ 2 MG/ML SYR IV PRN (08:15)
[2020-12-16] MEDS: METFORMIN HCL 500 MG TAB PO SCH ×2 (09:19→17:05)
[2020-12-16] MEDS: AMIODARONE HCL 200 MG TAB PO SCH ×2 (09:19→17:05)
[2020-12-16] MEDS: FAMOTIDINE 20 MG TAB PO SCH (09:19)
[2020-12-16] MEDS: CHOLESTYRAMINE 4 GM PACKET PO SCH ×3 (09:19→17:06)
[2020-12-16] MEDS: LOSARTAN POTASSIUM 100 MG TAB PO SCH (09:20)
[2020-12-16] MEDS: CARVEDILOL 12.5 MG TAB PO SCH ×2 (09:20→17:05)
[2020-12-16] MEDS: GABAPENTIN 400 MG CAP PO SCH ×2 (09:20→15:02)
[2020-12-16 09:39] VITALS: BP 156/59
[2020-12-16 11:40] VITALS: BP 123/65
[2020-12-16] MEDS: CEFTRIAXONE 2 GM in SODIUM CHLORIDE 0.9% 100 ML IV SCH (15:05)
[2020-12-16 15:15] VITALS: BP 141/69
[2020-12-16] MEDS ORDERED: COLACE100 MG PO (15:19)
[2020-12-16] MEDS ORDERED: EUCERIN ORIGIN250 ML TOP (15:19)
[2020-12-16] MEDS ORDERED: FAMOTIDINE20 MG PO (15:19)
[2020-12-16] MEDS ORDERED: MELATONIN5 M2 PO (15:19)
[2020-12-16] MEDS ORDERED: CHOLESTYRAMINE L4 GM PO (15:19)
[2020-12-16] MEDS ORDERED: CEFTRIAXONE2 G1 IV (15:19)
[2020-12-16] MEDS ORDERED: GABAPENTIN400 MG PO (15:19)
[2020-12-16] MEDS ORDERED: ACETAMINOPHEN325 M1 PO (15:19)
[2020-12-16] MEDS ORDERED: SENNA S TABLET1 EACH PO (15:19)
[2020-12-16] MEDS ORDERED: HYDROCODON-ACE1 EA11 PO (15:19)
[2020-12-16] MEDS ORDERED: ONDANSETRON ODT4 MG PO (15:19)
[2020-12-16] MEDS ORDERED: COREG12.5 MG PO (15:19)
[2020-12-16] MEDS ORDERED: AMIODARONE HCL200 MG PO (15:19)
[2020-12-16] MEDS ORDERED: HUMULIN R100 UNIT/2 SQ (15:19)
[2020-12-16] MEDS ORDERED: METFORMIN HCL500 MG PO (15:19)
[2020-12-16] MEDS ORDERED: MINERAL OIL/PETROLAT/GLYCERI 8OZ LOTN TOP SCH (17:00)
== END 2020-12-16 19:45 | DRG 854 ==
LOC: ER 10:46 → ERHOLD 12:15 → MED/SURG2 16:14 → ICU 12-10 02:24 → MED/SURG2 12-12 12:01
PROVIDERS: ADMIT Internal Medicine; ATTEND Internal Medicine
PROC: 02HV33Z Insertion of Infusion Device into Superior Vena Cava, Percutaneous Approach (ICD-10-PCS; principal; 2020-12-12)
PROC: 0JBR0ZZ Excision of Left Foot Subcutaneous Tissue and Fascia, Open Approach (ICD-10-PCS; 2020-12-12)
DX: A41.9 Sepsis, unspecified organism (principal); M86.172 Other acute osteomyelitis, left ankle and foot; E11.52 Type 2 diabetes mellitus with diabetic peripheral angiopathy with gangrene; I96 Gangrene, not elsewhere classified; E11.621 Type 2 diabetes mellitus with foot ulcer; E11.628 Type 2 diabetes mellitus with other skin complications; L03.032 Cellulitis of left toe; Z79.899 Other long term (current) drug therapy; I48.91 Unspecified atrial fibrillation; E78.49 Other hyperlipidemia; E11.69 Type 2 diabetes mellitus with other specified complication; R65.20 Severe sepsis without septic shock; B95.2 Enterococcus as the cause of diseases classified elsewhere; B96.89 Other specified bacterial agents as the cause of diseases classified elsewhere; I87.2 Venous insufficiency (chronic) (peripheral); E66.9 Obesity, unspecified; Z68.35 Body mass index [BMI] 35.0-35.9, adult; E78.00 Pure hypercholesterolemia, unspecified; F32.9 Major depressive disorder, single episode, unspecified
CPT/HCPCS: 36415; 36569; 71045; 80048; 80053; 80202; 82550; 82553; 82948; 83605; 83735; 84100; 84484; 85025; 87040; 87071; 87186; 87205; 93005; 99251; 99284; J0360; J0692; J0696; J1160; J1817; J2270; J2405; J3370; J7030; J7050; U0002

== ENCOUNTER → 2021-01-17 | Outpatient (CLI) | payer MEDICARE ==
[~2021-01-17] MED LIST changes: +ACETAMINOPHEN325 M1 PO; +AMIODARONE HCL200 MG PO; +CEFTRIAXONE2 G1 IV; +CHOLESTYRAMINE L4 GM PO; +COLACE100 MG PO; +COREG12.5 MG PO; +EUCERIN ORIGIN250 ML TOP; +FAMOTIDINE20 MG PO; +GABAPENTIN400 MG PO; +HUMULIN R100 UNIT/2 SQ; +HYDROCODON-ACE1 EA11 PO; +HYDROCODON-ACE1 EAC9 PO; +MELATONIN5 M2 PO; +METFORMIN HCL1000 MG PO; +METFORMIN HCL500 MG PO; +ONDANSETRON ODT4 MG PO; +PENTOXIFYLLINE400 MG PO; +SENNA S TABLET1 EACH PO; +TIZANIDINE HCL4 M1 PO; +tylenol #4 PO
== END ==
LOC: RAD 10:30
PROVIDERS: ATTEND Internal Medicine Infectious Disease
DX: Z01.810 Encounter for preprocedural cardiovascular examination (principal); Z01.811 Encounter for preprocedural respiratory examination; E11.621 Type 2 diabetes mellitus with foot ulcer; L97.421 Non-pressure chronic ulcer of left heel and midfoot limited to breakdown of skin; M86.172 Other acute osteomyelitis, left ankle and foot
CPT/HCPCS: 71046; 93005

== ENCOUNTER → 2021-01-27 | Outpatient (CLI) | payer MEDICARE | LOC: DX 09:04 | PROVIDERS: ATTEND Internal Medicine Infectious Disease | DX: Z01.810 Encounter for preprocedural cardiovascular examination (principal); Z01.811 Encounter for preprocedural respiratory examination; Z45.2 Encounter for adjustment and management of vascular access device | CPT/HCPCS: 36415; 36569; 71045; 85014; 85049 ==

== ENCOUNTER 2021-01-28 15:07 | Outpatient (RCR) | payer MEDICARE ==
[~2021-01-28 15:07] MED LIST changes: +COLLAGENASE OINTMENT 30 GM TUBE ONE
== END 2021-01-29 ==
LOC: WCC 15:07
PROVIDERS: ATTEND Internal Medicine Infectious Disease
DX: E11.621 Type 2 diabetes mellitus with foot ulcer (principal); E11.622 Type 2 diabetes mellitus with other skin ulcer; E11.51 Type 2 diabetes mellitus with diabetic peripheral angiopathy without gangrene; M86.172 Other acute osteomyelitis, left ankle and foot; S81.802A Unspecified open wound, left lower leg, initial encounter; L97.411 Non-pressure chronic ulcer of right heel and midfoot limited to breakdown of skin; L97.421 Non-pressure chronic ulcer of left heel and midfoot limited to breakdown of skin; L97.821 Non-pressure chronic ulcer of other part of left lower leg limited to breakdown of skin; L03.115 Cellulitis of right lower limb; B96.89 Other specified bacterial agents as the cause of diseases classified elsewhere; E66.01 Morbid (severe) obesity due to excess calories; Z68.35 Body mass index [BMI] 35.0-35.9, adult; Z01.810 Encounter for preprocedural cardiovascular examination; Z01.811 Encounter for preprocedural respiratory examination; W45.8XXA Other foreign body or object entering through skin, initial encounter
CPT/HCPCS: 36415; 82948

== ENCOUNTER 2021-02-28 08:24 | Outpatient (RCR) | payer MEDICARE ==
[2021-02-25 12:32] LABS: CREATININE, SERUM 0.89 mg/dL (0.72-1.25)
[~2021-02-28 08:24] MED LIST changes: -COLLAGENASE OINTMENT 30 GM TUBE ONE
== END 2021-03-01 ==
LOC: WCC 08:24
PROVIDERS: ATTEND Internal Medicine Infectious Disease
DX: E11.621 Type 2 diabetes mellitus with foot ulcer (principal); E11.622 Type 2 diabetes mellitus with other skin ulcer; E11.51 Type 2 diabetes mellitus with diabetic peripheral angiopathy without gangrene; M86.172 Other acute osteomyelitis, left ankle and foot; L97.411 Non-pressure chronic ulcer of right heel and midfoot limited to breakdown of skin; L97.421 Non-pressure chronic ulcer of left heel and midfoot limited to breakdown of skin; L97.821 Non-pressure chronic ulcer of other part of left lower leg limited to breakdown of skin; S81.802A Unspecified open wound, left lower leg, initial encounter; L03.115 Cellulitis of right lower limb; E66.01 Morbid (severe) obesity due to excess calories; Z68.35 Body mass index [BMI] 35.0-35.9, adult; Z01.810 Encounter for preprocedural cardiovascular examination; Z01.811 Encounter for preprocedural respiratory examination; W45.8XXA Other foreign body or object entering through skin, initial encounter
CPT/HCPCS: 36415 ×9; 82550; 82565; 82948 ×9; 84520; 97602 ×8; 99213 ×9; G0277 ×10

== ENCOUNTER 2021-03-29 10:39 | Outpatient (RCR) | payer MEDICARE | END 2021-03-31 | LOC: WCC 10:39 | PROVIDERS: ATTEND Internal Medicine Infectious Disease | DX: E11.621 Type 2 diabetes mellitus with foot ulcer (principal); E11.51 Type 2 diabetes mellitus with diabetic peripheral angiopathy without gangrene; E11.622 Type 2 diabetes mellitus with other skin ulcer; M86.172 Other acute osteomyelitis, left ankle and foot; L03.115 Cellulitis of right lower limb; L97.411 Non-pressure chronic ulcer of right heel and midfoot limited to breakdown of skin; L97.421 Non-pressure chronic ulcer of left heel and midfoot limited to breakdown of skin; B96.89 Other specified bacterial agents as the cause of diseases classified elsewhere; E66.01 Morbid (severe) obesity due to excess calories; Z68.35 Body mass index [BMI] 35.0-35.9, adult; Z01.810 Encounter for preprocedural cardiovascular examination; Z01.811 Encounter for preprocedural respiratory examination; W45.8XXA Other foreign body or object entering through skin, initial encounter | CPT/HCPCS: 36415 ×10; 82948 ×10; 97602 ×7; 99212; 99213 ×5; G0277 ×9 ==

== ENCOUNTER 2021-04-29 09:59 | Outpatient (RCR) | payer MEDICARE ==
[~2021-04-29 09:59] MED LIST changes: +COLLAGENASE OINTMENT 30 GM TUBE ONE
== END 2021-05-01 ==
LOC: WCC 09:59
PROVIDERS: ATTEND Internal Medicine Infectious Disease
DX: E11.621 Type 2 diabetes mellitus with foot ulcer (principal); E11.622 Type 2 diabetes mellitus with other skin ulcer; E11.51 Type 2 diabetes mellitus with diabetic peripheral angiopathy without gangrene; M86.172 Other acute osteomyelitis, left ankle and foot; L03.115 Cellulitis of right lower limb; L97.421 Non-pressure chronic ulcer of left heel and midfoot limited to breakdown of skin; L97.411 Non-pressure chronic ulcer of right heel and midfoot limited to breakdown of skin; Z68.35 Body mass index [BMI] 35.0-35.9, adult; E66.01 Morbid (severe) obesity due to excess calories; W45.8XXA Other foreign body or object entering through skin, initial encounter; Z01.810 Encounter for preprocedural cardiovascular examination; Z01.811 Encounter for preprocedural respiratory examination
CPT/HCPCS: 36415 ×13; 82948 ×14; 97602 ×13; 99212 ×2; 99213 ×10; G0277 ×15

== ENCOUNTER → 2021-05-31 | Outpatient (RCR) | payer MEDICARE ==
[2021-05-03 10:49] LABS: BASOPHILS # (AUTO) 0.1 (0.0-0.1); EOSINOPHILS # (AUTO) 0.3 (0.0-0.4); EOSINOPHILS % 7.3 % (0.0-6.0); HEMATOCRIT 40.8 % (38.2-49.6); HEMOGLOBIN 12.7 g/dL (14.0-18.0); LYMPHOCYTES # (AUTO) 1.8 (1.0-3.2); LYMPHOCYTES % 44.5 % (18.0-39.1); MEAN CORPUSCULAR HEMOGLOBIN 28.2 pg (28-32); MEAN CORPUSCULAR HGB CONC 31.1 g/dL (31-35); MEAN CORPUSCULAR VOLUME 90.7 fL (81-99); MONOCYTES # (AUTO) 0.3 (0.2-0.8); NEUTROPHILS # (AUTO) 1.6 (2.1-6.9); NEUTROPHILS % 38.9 % (38.7-80.0); PLATELET COUNT 151 x10e3/uL (140-360); RED CELL DISTRIBUTION WIDTH 15.6 % (11.7-14.4)
[2021-05-03 11:17] LABS: ALBUMIN 3.6 g/dL (3.5-5.0); ALBUMIN/GLOBULIN RATIO 0.9 (0.8-2.0); ANION GAP 15.2 mmol/L (8-16); CALCIUM 9.1 mg/dL (8.4-10.2); CREATININE, SERUM 0.96 mg/dL (0.72-1.25); POTASSIUM 4.2 mmol/L (3.5-5.1)
[~2021-05-31] MED LIST changes: +CADEXOMER IODINE 30 GM TUBE ONE
== END ==
LOC: WCC 05-02 10:17
PROVIDERS: ATTEND Podiatrist Foot & Ankle Surgery
DX: E11.621 Type 2 diabetes mellitus with foot ulcer (principal); E11.622 Type 2 diabetes mellitus with other skin ulcer; E11.51 Type 2 diabetes mellitus with diabetic peripheral angiopathy without gangrene; M86.172 Other acute osteomyelitis, left ankle and foot; L97.421 Non-pressure chronic ulcer of left heel and midfoot limited to breakdown of skin; L97.411 Non-pressure chronic ulcer of right heel and midfoot limited to breakdown of skin; L03.115 Cellulitis of right lower limb; B96.89 Other specified bacterial agents as the cause of diseases classified elsewhere; E66.01 Morbid (severe) obesity due to excess calories; Z68.35 Body mass index [BMI] 35.0-35.9, adult; Z01.810 Encounter for preprocedural cardiovascular examination; Z01.811 Encounter for preprocedural respiratory examination; W45.8XXA Other foreign body or object entering through skin, initial encounter
CPT/HCPCS: 11042 ×3; 36415 ×12; 80053; 82948 ×11; 83036; 84134; 85025; 85651; 86141; 93923; 97602 ×10; 99203; 99212; 99213 ×6; G0277 ×12

== ENCOUNTER 2021-06-21 09:16 | Outpatient (RCR) | payer MEDICARE ==
[~2021-06-21 09:16] MED LIST changes: -CADEXOMER IODINE 30 GM TUBE ONE; +MUPIROCIN 2% OINT 22 GM TUBE ONE
== END 2021-07-01 ==
LOC: WCC 09:16
PROVIDERS: ATTEND Podiatrist Foot & Ankle Surgery
DX: E11.621 Type 2 diabetes mellitus with foot ulcer (principal); E11.622 Type 2 diabetes mellitus with other skin ulcer; E11.51 Type 2 diabetes mellitus with diabetic peripheral angiopathy without gangrene; M86.172 Other acute osteomyelitis, left ankle and foot; L97.421 Non-pressure chronic ulcer of left heel and midfoot limited to breakdown of skin; L97.411 Non-pressure chronic ulcer of right heel and midfoot limited to breakdown of skin; L03.115 Cellulitis of right lower limb; B96.89 Other specified bacterial agents as the cause of diseases classified elsewhere; Z68.35 Body mass index [BMI] 35.0-35.9, adult; W45.8XXA Other foreign body or object entering through skin, initial encounter; E66.01 Morbid (severe) obesity due to excess calories; Z01.810 Encounter for preprocedural cardiovascular examination; Z01.811 Encounter for preprocedural respiratory examination
CPT/HCPCS: 11042 ×2; 36415 ×5; 82948 ×5; 97602 ×3; 99213 ×9; G0277 ×7